=== PATIENT | female | born 1935 | race African-American/Black ===

== ENCOUNTER 2019-08-23 21:14 | Inpatient (IN) | payer BC ==
[~2019-08-23] VITALS: Ht 167.6 cm; Wt 72.6 kg
[2019-08-23 22:07] LABS: HEMATOCRIT. 43.8 % (36.0-48.0); MEAN CORPUSCULAR HEMOGLOBIN 31.2 pg (28.0-32.0); MEAN CORPUSCULAR VOLUME 91.2 fL (81.0-99.0); MEAN PLATELET VOLUME 8.5 fl (7.4-10.4); PLATELET 211 x1000/uL (130-400); RED BLOOD CELL COUNT 4.81 mill/uL (4.2-5.4); RED CELL DISTRIBUTION WIDTH 13.8 % (11.6-14.6)
[2019-08-23 22:13] LABS: CHLORIDE 104 mEq/L (98-107); INR 1.1; PROTHROMBIN TIME 12.4 sec (9.6-11.0)
[2019-08-23 22:16] LABS: ETHANOL BLOOD < 10 mg/dL
[2019-08-23 22:25] LABS: PLATELET ESTIMATE NORMAL
[2019-08-23] MEDS ORDERED: SODIUM CHLORIDE 0.9% 1,000 ML IV ONE (22:28)
[2019-08-23 22:51] LABS: CLARITY URINE CLEAR (CLEAR); COLOR URINE YELLOW (YELLOW); KETONES URINE NEGATIVE (NEGATIVE); LEUKOCYTE ESTERASE URINE TRACE (NEGATIVE); NITRITE URINE NEGATIVE (NEGATIVE); OCCULT BLOOD URINE 2+ (NEGATIVE); PROTEIN URINE 1+ (NEGATIVE); SPECIFIC GRAVITY URINE 1.019 (1.005-1.030)
[2019-08-23 23:06] LABS: *AMPHETAMINES SCREEN URINE NEGATIVE (NEGATIVE); *BARBITURATES SCREEN URINE NEGATIVE (NEGATIVE); *BENZODIAZEPINES SCREEN URINE NEGATIVE (NEGATIVE); *COCAINE SCREEN URINE NEGATIVE (NEGATIVE); METHADONE URINE SCREEN NEGATIVE (NEGATIVE); OPIATES URINE SCREEN NEGATIVE (NEGATIVE)
[2019-08-23 23:07] LABS: CANNABINOID URINE SCREEN NEGATIVE (NEGATIVE); PHENCYCLIDINE URINE SCREEN NEGATIVE (NEGATIVE)
[2019-08-23] MEDS ORDERED: PIPERACILLIN/TAZ 3.375G PREMIX 50 ML IV ONE (23:45)
[2019-08-23] MEDS ORDERED: VANCOMYCIN 1 G PREMIX 200 ML IV ONE (23:45)
[2019-08-24] VITALS (7 sets, daily range): BP systolic 133–146; BP diastolic 72–90
[2019-08-24] MEDS ORDERED: KCL 20MEQ/100ML PREMIX 100 ML IV ONE
[2019-08-24] MEDS ORDERED: IPRATROPIUM/ALBUTEROL 0.5-3(2.5)MG/3ML NEB HHN PRN (09:15)
[2019-08-24] MEDS ORDERED: ACETAMINOPHEN 325MG TABLET PO PRN (09:15)
[2019-08-24] MEDS ORDERED: DOCUSATE SODIUM 100MG CAPSULE PO PRN (09:15)
[2019-08-24] MEDS ORDERED: ONDANSETRON HCL 4MG/2ML INJ IV PRN (09:15)
[2019-08-24] MEDS ORDERED: CLONIDINE 0.1MG TABLET PO PRN (09:15)
[2019-08-24 10:49] LABS: HEMATOCRIT. 44.8 % (36.0-48.0); HEMOGLOBIN. 14.8 g/dL (12.0-16.0); MEAN CORPUSCULAR HEMOGLOBIN 30.6 pg (28.0-32.0); MEAN CORPUSCULAR VOLUME 92.7 fL (81.0-99.0); MEAN PLATELET VOLUME 8.5 fl (7.4-10.4); PLATELET 169 x1000/uL (130-400); RED BLOOD CELL COUNT 4.83 mill/uL (4.2-5.4); RED CELL DISTRIBUTION WIDTH 13.7 % (11.6-14.6)
[2019-08-24 10:59] LABS: CHLORIDE 109 mEq/L (98-107)
[2019-08-24 11:55] LABS: PLATELET ESTIMATE NORMAL
[2019-08-24] MEDS ORDERED: ATOR10TA69 MT (12:21)
[2019-08-24] MEDS ORDERED: APIX2.5T MT (12:21)
[2019-08-24] MEDS ORDERED: POTASSIUM CHLORIDE 20MEQ TABLET SR PO SCH (13:00)
[2019-08-24] MEDS ORDERED: APIXABAN 5 MG TABLET PO SCH (13:45)
[2019-08-24] MEDS ORDERED: PIPERACILLIN/TAZOBACTAM 3.375 G/VIAL IV SCH (14:00)
[2019-08-24] MEDS: PIPERACILLIN/TAZ 3.375G PREMIX 50 ML IV SCH (14:15)
[2019-08-24] MEDS ORDERED: LORAZEPAM 2MG/ML CPJ IV PRN (17:30)
[2019-08-24] MEDS ORDERED: IOHEXOL-300 100 ML BOTTLE ONE (17:57)
[2019-08-24] MEDS: VANCOMYCIN 750 MG PREMIX 150 ML IV SCH (21:14)
[2019-08-24] MEDS: ATORVASTATIN CALCIUM 10MG TABLET PO SCH (21:22)
[2019-08-24] MEDS ORDERED: VANCOMYCIN 1 G PREMIX 200 ML IV SCH (23:59)
[2019-08-25] VITALS (11 sets, daily range): BP systolic 116–161; BP diastolic 48–83
[2019-08-25] MEDS: PIPERACILLIN/TAZ 3.375G PREMIX 50 ML IV SCH ×3 (00:21→14:13)
[2019-08-25] MEDS: HYDROCODONE/ACETAMINOPHEN 5/325MG TABLET PO PRN ×2 (03:13→09:01)
[2019-08-25 08:56] LABS: BASOPHILS % 0.2 % (0.0-2.0); HEMATOCRIT. 47.8 % (36.0-48.0); LYMPHOCYTES % 10.8 % (20.0-50.0); MEAN CORPUSCULAR HEMOGLOBIN 30.8 pg (28.0-32.0); MEAN CORPUSCULAR VOLUME 91.9 fL (81.0-99.0); MEAN PLATELET VOLUME 8.8 fl (7.4-10.4); PLATELET 182 x1000/uL (130-400); RED CELL DISTRIBUTION WIDTH 14.1 % (11.6-14.6)
[2019-08-25] MEDS: APIXABAN 2.5 MG TABLET PO SCH ×2 (09:02→16:50)
[2019-08-25 09:08] LABS: CHLORIDE 103 mEq/L (98-107)
[2019-08-25] MEDS ORDERED: SODIUM CHLORIDE 0.9% 1000ML BAG (SEPSIS BOLUS) IV ONE ×2 (10:45)
[2019-08-25] MEDS ORDERED: SODIUM CHLORIDE 0.9% 1,000 ML IV ONE (11:30)
[2019-08-25] MEDS: VANCOMYCIN 750 MG PREMIX 150 ML IV SCH (16:50)
[2019-08-25] MEDS: ATORVASTATIN CALCIUM 10MG TABLET PO SCH (21:00)
[2019-08-25] MEDS: PIPERACILLIN/TAZOBACTAM 3.375 G in DEXT 5% WATER 100 ML IV SCH (21:05)
[2019-08-26] VITALS (9 sets, daily range): BP systolic 119–147; BP diastolic 65–108
[2019-08-26] MEDS: PIPERACILLIN/TAZOBACTAM 3.375 G in DEXT 5% WATER 100 ML IV SCH ×3 (06:14→22:10)
[2019-08-26 07:22] LABS: CHLORIDE 106 mEq/L (98-107)
[2019-08-26 07:36] LABS: BASOPHILS % 0.2 % (0.0-2.0); EOSINOPHILS % 0.4 % (0.0-5.0); HEMATOCRIT. 44.5 % (36.0-48.0); HEMOGLOBIN. 15.2 g/dL (12.0-16.0); LYMPHOCYTES % 18.4 % (20.0-50.0); MEAN CORPUSCULAR HEMOGLOBIN 31.1 pg (28.0-32.0); MEAN CORPUSCULAR VOLUME 91.1 fL (81.0-99.0); MEAN PLATELET VOLUME 9.2 fl (7.4-10.4); MONOCYTES % 8.7 % (2.0-8.0); NEUTROPHILS % 72.3 % (40.0-76.0); PLATELET 159 x1000/uL (130-400); RED BLOOD CELL COUNT 4.89 mill/uL (4.2-5.4); RED CELL DISTRIBUTION WIDTH 13.7 % (11.6-14.6)
[2019-08-26] MEDS ORDERED: SODIUM BICARBONATE 4% (2.4MEQ) 5ML VIAL IV ONE (08:03)
[2019-08-26] MEDS ORDERED: LIDOCAINE HCL 1% 20ML VIAL (Pyxis) INJ ONE (08:03)
[2019-08-26] MEDS: APIXABAN 2.5 MG TABLET PO SCH ×2 (09:26→17:01)
[2019-08-26] MEDS: VANCOMYCIN 750 MG PREMIX 150 ML IV SCH (09:26)
[2019-08-26] MEDS ORDERED: IOHEXOL-350 100 ML BOTTLE ONE (10:26)
[2019-08-26] MEDS ORDERED: SODIUM CHLORIDE 0.9% 1,000 ML IV ONE (11:30)
[2019-08-26] MEDS: DOXYCYCLINE 100 MG in DEXT 5% WATER 100 ML IV SCH (17:01)
[2019-08-26] MEDS: ATORVASTATIN CALCIUM 10MG TABLET PO SCH (21:11)
[2019-08-27] MEDS ORDERED: VANCOMYCIN 1 G PREMIX 200 ML IV SCH
[2019-08-27] MEDS: DOXYCYCLINE 100 MG in DEXT 5% WATER 100 ML IV SCH (00:09)
[2019-08-27 00:32] VITALS: BP 148/81
[2019-08-27] MEDS: IPRATROPIUM/ALBUTEROL 0.5-3(2.5)MG/3ML NEB HHN SCH (01:13)
[2019-08-27 04:00] VITALS: BP 138/66
[2019-08-27] MEDS: PIPERACILLIN/TAZOBACTAM 3.375 G in DEXT 5% WATER 100 ML IV SCH ×3 (05:46→22:00)
[2019-08-27 06:27] LABS: CHLORIDE 106 mEq/L (98-107)
[2019-08-27 06:33] LABS: PHOSPHORUS 2.7 mg/dL (2.5-4.9)
[2019-08-27 06:37] LABS: BASOPHILS % 0.2 % (0.0-2.0); EOSINOPHILS % 0.7 % (0.0-5.0); HEMATOCRIT. 41.5 % (36.0-48.0); HEMOGLOBIN. 14.3 g/dL (12.0-16.0); LYMPHOCYTES % 19.4 % (20.0-50.0); MEAN CORPUSCULAR HEMOGLOBIN 31.2 pg (28.0-32.0); MEAN CORPUSCULAR VOLUME 90.4 fL (81.0-99.0); MEAN PLATELET VOLUME 9.2 fl (7.4-10.4); MONOCYTES % 9.8 % (2.0-8.0); NEUTROPHILS % 69.9 % (40.0-76.0); PLATELET 176 x1000/uL (130-400); RED BLOOD CELL COUNT 4.59 mill/uL (4.2-5.4); RED CELL DISTRIBUTION WIDTH 13.5 % (11.6-14.6)
[2019-08-27 08:49] VITALS: BP 128/63
[2019-08-27] MEDS: APIXABAN 2.5 MG TABLET PO SCH ×2 (09:09→17:01)
[2019-08-27] MEDS: DOXYCYCLINE HYCLATE 100MG CAPSULE PO SCH ×2 (09:09→21:00)
[2019-08-27] MEDS ORDERED: POTASSIUM CHLORIDE 20MEQ TABLET SR PO SCH (11:30)
[2019-08-27 12:29] VITALS: BP 134/70
[2019-08-27 16:13] VITALS: BP 134/86
[2019-08-27] MEDS: GUAIFENESIN 600MG ER TABLET PO SCH (21:00)
[2019-08-27] MEDS: ATORVASTATIN CALCIUM 10MG TABLET PO SCH (21:00)
[2019-08-28] MEDS: IPRATROPIUM/ALBUTEROL 0.5-3(2.5)MG/3ML NEB HHN SCH (01:12)
[2019-08-28 05:49] LABS: BASOPHILS % 0.3 % (0.0-2.0); EOSINOPHILS % 2.3 % (0.0-5.0); HEMATOCRIT. 41.7 % (36.0-48.0); HEMOGLOBIN. 14.3 g/dL (12.0-16.0); MEAN CORPUSCULAR HEMOGLOBIN 31.4 pg (28.0-32.0); MEAN CORPUSCULAR VOLUME 91.4 fL (81.0-99.0); MEAN PLATELET VOLUME 9.4 fl (7.4-10.4); MONOCYTES % 10.2 % (2.0-8.0); NEUTROPHILS % 64.2 % (40.0-76.0); PLATELET 202 x1000/uL (130-400); RED BLOOD CELL COUNT 4.56 mill/uL (4.2-5.4); RED CELL DISTRIBUTION WIDTH 13.6 % (11.6-14.6)
[2019-08-28 06:02] LABS: CHLORIDE 107 mEq/L (98-107)
[2019-08-28] MEDS: PIPERACILLIN/TAZOBACTAM 3.375 G in DEXT 5% WATER 100 ML IV SCH ×3 (06:35→22:33)
[2019-08-28 08:00] VITALS: BP 139/66
[2019-08-28] MEDS: APIXABAN 2.5 MG TABLET PO SCH ×2 (11:09→16:40)
[2019-08-28] MEDS: DOXYCYCLINE HYCLATE 100MG CAPSULE PO SCH ×2 (11:09→22:20)
[2019-08-28] MEDS: GUAIFENESIN 600MG ER TABLET PO SCH ×2 (11:09→21:00)
[2019-08-28 12:00] VITALS: BP 150/94
[2019-08-28 16:00] VITALS: BP 143/91
[2019-08-28 20:00] VITALS: BP 125/56
[2019-08-28] MEDS: ATORVASTATIN CALCIUM 10MG TABLET PO SCH (22:20)
[2019-08-29] MEDS: IPRATROPIUM/ALBUTEROL 0.5-3(2.5)MG/3ML NEB HHN SCH ×3 (02:06→15:45)
[2019-08-29 04:35] VITALS: BP 142/76
[2019-08-29] MEDS: PIPERACILLIN/TAZOBACTAM 3.375 G in DEXT 5% WATER 100 ML IV SCH ×2 (06:00→15:11)
[2019-08-29 06:18] LABS: BASOPHILS % 0.2 % (0.0-2.0); EOSINOPHILS % 1.6 % (0.0-5.0); HEMATOCRIT. 42.7 % (36.0-48.0); HEMOGLOBIN. 14.2 g/dL (12.0-16.0); LYMPHOCYTES % 23.8 % (20.0-50.0); MEAN CORPUSCULAR HEMOGLOBIN 30.7 pg (28.0-32.0); MEAN PLATELET VOLUME 9.2 fl (7.4-10.4); MONOCYTES % 11.3 % (2.0-8.0); NEUTROPHILS % 63.1 % (40.0-76.0); PLATELET 225 x1000/uL (130-400); RED BLOOD CELL COUNT 4.64 mill/uL (4.2-5.4)
[2019-08-29 06:32] LABS: CHLORIDE 107 mEq/L (98-107)
[2019-08-29 08:00] VITALS: BP_SYST 117; BP_SYST 154; BP_DIAS 74; BP_DIAS 84
[2019-08-29] MEDS: APIXABAN 2.5 MG TABLET PO SCH ×2 (09:38→17:39)
[2019-08-29] MEDS: DOXYCYCLINE HYCLATE 100MG CAPSULE PO SCH (09:38)
[2019-08-29] MEDS: GUAIFENESIN 600MG ER TABLET PO SCH (09:38)
[2019-08-29] MEDS ORDERED: POTASSIUM CHLORIDE 20MEQ TABLET SR PO SCH (11:30)
[2019-08-29 12:00] VITALS: BP 154/74
[2019-08-29 15:57] VITALS: BP 154/74
[2019-08-29] MEDS: ATORVASTATIN CALCIUM 10MG TABLET PO SCH (21:00)
[2019-08-30] MEDS: DOXYCYCLINE HYCLATE 100MG CAPSULE PO SCH ×3 (00:13→21:20)
[2019-08-30] MEDS: GUAIFENESIN 600MG ER TABLET PO SCH ×3 (00:14→21:20)
[2019-08-30] MEDS: PIPERACILLIN/TAZOBACTAM 3.375 G in DEXT 5% WATER 100 ML IV SCH ×4 (00:23→17:01)
[2019-08-30 06:08] LABS: BASOPHILS % 0.3 % (0.0-2.0); EOSINOPHILS % 2.4 % (0.0-5.0); HEMATOCRIT. 41.5 % (36.0-48.0); HEMOGLOBIN. 14.3 g/dL (12.0-16.0); LYMPHOCYTES % 25.8 % (20.0-50.0); MEAN CORPUSCULAR HEMOGLOBIN 31.3 pg (28.0-32.0); MEAN CORPUSCULAR VOLUME 90.7 fL (81.0-99.0); MEAN PLATELET VOLUME 8.8 fl (7.4-10.4); MONOCYTES % 11.1 % (2.0-8.0); NEUTROPHILS % 60.4 % (40.0-76.0); PLATELET 239 x1000/uL (130-400); RED BLOOD CELL COUNT 4.57 mill/uL (4.2-5.4); RED CELL DISTRIBUTION WIDTH 13.7 % (11.6-14.6)
[2019-08-30 06:32] LABS: CHLORIDE 106 mEq/L (98-107)
[2019-08-30] MEDS: IPRATROPIUM/ALBUTEROL 0.5-3(2.5)MG/3ML NEB HHN SCH ×2 (07:41→13:14)
[2019-08-30 08:00] VITALS: BP 136/77
[2019-08-30] MEDS: APIXABAN 2.5 MG TABLET PO SCH ×2 (09:31→17:01)
[2019-08-30 12:00] VITALS: BP 110/52
[2019-08-30 16:00] VITALS: BP 124/78
[2019-08-30 20:00] VITALS: BP 131/86
[2019-08-30] MEDS: ATORVASTATIN CALCIUM 10MG TABLET PO SCH (21:20)
[2019-08-31] VITALS (7 sets, daily range): BP systolic 125–147; BP diastolic 55–83
[2019-08-31] MEDS: PIPERACILLIN/TAZOBACTAM 3.375 G in DEXT 5% WATER 100 ML IV SCH ×3 (02:19→18:38)
[2019-08-31] MEDS: IPRATROPIUM/ALBUTEROL 0.5-3(2.5)MG/3ML NEB HHN SCH ×2 (02:20→21:38)
[2019-08-31] MEDS: DOXYCYCLINE HYCLATE 100MG CAPSULE PO SCH ×2 (08:42→23:54)
[2019-08-31] MEDS: APIXABAN 2.5 MG TABLET PO SCH ×2 (08:43→18:38)
[2019-08-31] MEDS: GUAIFENESIN 600MG ER TABLET PO SCH ×2 (08:43→23:54)
[2019-08-31] MEDS: ATORVASTATIN CALCIUM 10MG TABLET PO SCH (23:54)
[2019-09-01] VITALS (7 sets, daily range): BP systolic 107–158; BP diastolic 60–85
[2019-09-01] MEDS: PIPERACILLIN/TAZOBACTAM 3.375 G in DEXT 5% WATER 100 ML IV SCH ×3 (02:05→17:20)
[2019-09-01] MEDS: APIXABAN 2.5 MG TABLET PO SCH ×2 (10:00→17:00)
[2019-09-01] MEDS: GUAIFENESIN 600MG ER TABLET PO SCH ×2 (10:01→21:49)
[2019-09-01] MEDS: ATORVASTATIN CALCIUM 10MG TABLET PO SCH (21:49)
== END 2019-09-01 23:35 | DRG 871 ==
LOC: ER 21:14 → 3WST 23:48 → EDBEDREQ 23:59 → EDBEDREQSVC 23:59 → EDBEDREQTM 23:59 → ENRESERV 08-24 08:56 → 7EST 08-26 11:11 → 6WST 08-27 10:13
PROVIDERS: ADMIT Internal Medicine; ATTEND Internal Medicine
PROC: 4A00X4Z Measurement of Central Nervous Electrical Activity, External Approach (ICD-10-PCS; 2019-08-25)
PROC: 02HV33Z Insertion of Infusion Device into Superior Vena Cava, Percutaneous Approach (ICD-10-PCS; principal; 2019-08-26)
PROC: B548ZZA Ultrasonography of Superior Vena Cava, Guidance (ICD-10-PCS; 2019-08-26)
PROC: B5181ZA Fluoroscopy of Superior Vena Cava using Low Osmolar Contrast, Guidance (ICD-10-PCS; 2019-08-26)
DX: A41.9 Sepsis, unspecified organism (principal); J18.9 Pneumonia, unspecified organism; G92 Toxic encephalopathy; E87.2 Acidosis; E44.1 Mild protein-calorie malnutrition; E87.6 Hypokalemia; E78.00 Pure hypercholesterolemia, unspecified; D72.810 Lymphocytopenia; R31.9 Hematuria, unspecified; I48.91 Unspecified atrial fibrillation; E78.5 Hyperlipidemia, unspecified; K57.90 Diverticulosis of intestine, part unspecified, without perforation or abscess without bleeding; K76.0 Fatty (change of) liver, not elsewhere classified; Z79.01 Long term (current) use of anticoagulants; Z90.710 Acquired absence of both cervix and uterus; I69.322 Dysarthria following cerebral infarction; Z87.81 Personal history of (healed) traumatic fracture; Z79.899 Other long term (current) drug therapy; Z68.25 Body mass index [BMI] 25.0-25.9, adult; Z20.828 Contact with and (suspected) exposure to other viral communicable diseases
CPT/HCPCS: 36415; 36573; 70551; 71045; 71275; 74177; 76937; 80048; 80053; 80061; 80202; 80305; 80320; 81003; 82140; 82607; 82746; 82962; 83036; 83605; 83735; 84100; 84145; 84443; 84484; 85025; 85379; 87635; 92610; 93005; 93970; 95816; 97162; 97166; 97530; 99291; C1725; J2060; J2543; J3370; J3480; J3490; J7030; J7060; Q9967; G0480

== ENCOUNTER 2019-09-01 23:41 | Inpatient (IN) | payer BC ==
[2019-08-31 23:41] VITALS: BP 142/60
[~2019-09-01] VITALS: Ht 167.6 cm; Wt 72.6 kg
[2019-09-01 23:41] VITALS: BP 142/60
[~2019-09-01 23:41] MED LIST: APIX2.5T MT; ATOR10TA69 MT
[2019-09-02] MEDS ORDERED: CLONIDINE 0.1MG TABLET PO PRN (01:00)
[2019-09-02] MEDS ORDERED: ONDANSETRON HCL 4MG/2ML INJ IV PRN (01:00)
[2019-09-02] MEDS ORDERED: IPRATROPIUM/ALBUTEROL 0.5-3(2.5)MG/3ML NEB HHN PRN (01:00)
[2019-09-02] MEDS ORDERED: ACETAMINOPHEN 325MG TABLET PO PRN ×2 (01:00→14:15)
[2019-09-02] MEDS ORDERED: PIPERACILLIN/TAZOBACTAM 3.375 G/VIAL IV SCH (02:00)
[2019-09-02] MEDS: PIPERACILLIN/TAZOBACTAM 3.375 G in DEXT 5% WATER 100 ML IV SCH ×3 (03:45→18:49)
[2019-09-02 08:19] VITALS: BP 131/57
[2019-09-02] MEDS: APIXABAN 2.5 MG TABLET PO SCH ×2 (09:12→17:00)
[2019-09-02] MEDS: GUAIFENESIN 600MG ER TABLET PO SCH ×2 (09:12→21:05)
[2019-09-02] MEDS: IPRATROPIUM/ALBUTEROL 0.5-3(2.5)MG/3ML NEB HHN SCH ×2 (16:49→23:50)
[2019-09-02 20:00] VITALS: BP 132/58
[2019-09-02] MEDS: ATORVASTATIN CALCIUM 10MG TABLET PO SCH (21:06)
[2019-09-03] MEDS: PIPERACILLIN/TAZOBACTAM 3.375 G in DEXT 5% WATER 100 ML IV SCH ×3 (01:03→17:15)
[2019-09-03 08:00] VITALS: BP 126/55
[2019-09-03] MEDS: GUAIFENESIN 600MG ER TABLET PO SCH ×2 (08:16→20:57)
[2019-09-03] MEDS: APIXABAN 2.5 MG TABLET PO SCH ×2 (08:16→17:15)
[2019-09-03] MEDS: IPRATROPIUM/ALBUTEROL 0.5-3(2.5)MG/3ML NEB HHN SCH ×3 (09:22→22:00)
[2019-09-03 20:00] VITALS: BP 131/63
[2019-09-03] MEDS: ATORVASTATIN CALCIUM 10MG TABLET PO SCH (20:57)
[2019-09-04 00:03] LABS: CLARITY URINE CLEAR (CLEAR); COLOR URINE YELLOW (YELLOW); KETONES URINE TRACE (NEGATIVE); LEUKOCYTE ESTERASE URINE TRACE (NEGATIVE); NITRITE URINE NEGATIVE (NEGATIVE); OCCULT BLOOD URINE NEGATIVE (NEGATIVE); PROTEIN URINE 1+ (NEGATIVE); SPECIFIC GRAVITY URINE 1.033 (1.005-1.030)
[2019-09-04] MEDS: PIPERACILLIN/TAZOBACTAM 3.375 G in DEXT 5% WATER 100 ML IV SCH ×3 (01:07→17:03)
[2019-09-04 08:00] VITALS: BP 121/54
[2019-09-04] MEDS: GUAIFENESIN 600MG ER TABLET PO SCH ×2 (09:29→20:16)
[2019-09-04] MEDS: APIXABAN 2.5 MG TABLET PO SCH ×2 (09:29→17:04)
[2019-09-04] MEDS: IPRATROPIUM/ALBUTEROL 0.5-3(2.5)MG/3ML NEB HHN SCH ×3 (10:05→17:20)
[2019-09-04 13:13] LABS: BASOPHILS % 0.4 % (0.0-2.0); EOSINOPHILS % 1.6 % (0.0-5.0); HEMOGLOBIN. 13.7 g/dL (12.0-16.0); LYMPHOCYTES % 28.3 % (20.0-50.0); MEAN CORPUSCULAR HEMOGLOBIN 30.8 pg (28.0-32.0); MEAN PLATELET VOLUME 9.1 fl (7.4-10.4); NEUTROPHILS % 59.7 % (40.0-76.0); PLATELET 267 x1000/uL (130-400); RED BLOOD CELL COUNT 4.46 mill/uL (4.2-5.4); RED CELL DISTRIBUTION WIDTH 14.1 % (11.6-14.6)
[2019-09-04] MEDS ORDERED: POTASSIUM CHLORIDE 20MEQ TABLET SR PO NR (17:00)
[2019-09-04 20:00] VITALS: BP 153/65
[2019-09-04] MEDS: ATORVASTATIN CALCIUM 10MG TABLET PO SCH (20:16)
[2019-09-05] MEDS: IPRATROPIUM/ALBUTEROL 0.5-3(2.5)MG/3ML NEB HHN SCH ×2 (02:24→22:37)
[2019-09-05 08:00] VITALS: BP 134/63
[2019-09-05] MEDS: GUAIFENESIN 600MG ER TABLET PO SCH ×2 (08:26→20:32)
[2019-09-05] MEDS: APIXABAN 2.5 MG TABLET PO SCH ×2 (08:26→16:43)
[2019-09-05 20:00] VITALS: BP 121/51
[2019-09-05] MEDS: ATORVASTATIN CALCIUM 10MG TABLET PO SCH (20:32)
[2019-09-06] MEDS: IPRATROPIUM/ALBUTEROL 0.5-3(2.5)MG/3ML NEB HHN SCH (00:10)
[2019-09-06 08:00] VITALS: BP 140/52
[2019-09-06] MEDS: APIXABAN 2.5 MG TABLET PO SCH ×2 (08:50→17:24)
[2019-09-06] MEDS: GUAIFENESIN 600MG ER TABLET PO SCH ×2 (08:50→21:44)
[2019-09-06] MEDS: SODIUM CHLORIDE 0.9% 1,000 ML IV SCH (14:42)
[2019-09-06 20:00] VITALS: BP 126/59
[2019-09-06] MEDS: ATORVASTATIN CALCIUM 10MG TABLET PO SCH (21:44)
[2019-09-07] MEDS: IPRATROPIUM/ALBUTEROL 0.5-3(2.5)MG/3ML NEB HHN SCH ×3 (02:14→16:43)
[2019-09-07] MEDS: SODIUM CHLORIDE 0.9% 1,000 ML IV SCH (04:42)
[2019-09-07 08:27] VITALS: BP 113/59
[2019-09-07] MEDS: APIXABAN 2.5 MG TABLET PO SCH ×2 (09:04→16:14)
[2019-09-07] MEDS: GUAIFENESIN 600MG ER TABLET PO SCH ×2 (09:04→22:10)
[2019-09-07 09:15] LABS: BASOPHILS % 0.5 % (0.0-2.0); EOSINOPHILS % 2.2 % (0.0-5.0); HEMATOCRIT. 40.1 % (36.0-48.0); HEMOGLOBIN. 13.3 g/dL (12.0-16.0); LYMPHOCYTES % 40.9 % (20.0-50.0); MEAN CORPUSCULAR HEMOGLOBIN 30.7 pg (28.0-32.0); MEAN CORPUSCULAR VOLUME 92.3 fL (81.0-99.0); MEAN PLATELET VOLUME 10.2 fl (7.4-10.4); MONOCYTES % 10.1 % (2.0-8.0); NEUTROPHILS % 46.3 % (40.0-76.0); PLATELET 208 x1000/uL (130-400); RED BLOOD CELL COUNT 4.35 mill/uL (4.2-5.4); RED CELL DISTRIBUTION WIDTH 14.5 % (11.6-14.6)
[2019-09-07 09:30] LABS: CHLORIDE 112 mEq/L (98-107)
[2019-09-07 20:00] VITALS: BP 145/73
[2019-09-07] MEDS: ATORVASTATIN CALCIUM 10MG TABLET PO SCH (22:10)
[2019-09-08] MEDS: IPRATROPIUM/ALBUTEROL 0.5-3(2.5)MG/3ML NEB HHN SCH ×2 (07:18→15:06)
[2019-09-08 08:22] VITALS: BP 136/65
[2019-09-08] MEDS: APIXABAN 2.5 MG TABLET PO SCH ×2 (08:53→16:26)
[2019-09-08] MEDS: GUAIFENESIN 600MG ER TABLET PO SCH ×2 (08:55→22:14)
[2019-09-08 20:18] VITALS: BP 123/45
[2019-09-08] MEDS: ATORVASTATIN CALCIUM 10MG TABLET PO SCH (22:15)
[2019-09-09 08:00] VITALS: BP 124/59
[2019-09-09 08:38] VITALS: BP 124/59
[2019-09-09] MEDS: GUAIFENESIN 600MG ER TABLET PO SCH ×2 (09:02→21:49)
[2019-09-09] MEDS: APIXABAN 2.5 MG TABLET PO SCH ×2 (09:02→17:29)
[2019-09-09] MEDS: ATORVASTATIN CALCIUM 10MG TABLET PO SCH (21:49)
[2019-09-09 22:11] VITALS: BP 118/63
[2019-09-10] MEDS: IPRATROPIUM/ALBUTEROL 0.5-3(2.5)MG/3ML NEB HHN SCH ×5 (00:53→20:19)
[2019-09-10 08:00] VITALS: BP 111/40
[2019-09-10] MEDS: APIXABAN 2.5 MG TABLET PO SCH ×2 (10:18→17:14)
[2019-09-10] MEDS: GUAIFENESIN 600MG ER TABLET PO SCH ×2 (10:18→20:25)
[2019-09-10 20:00] VITALS: BP 134/60
[2019-09-10] MEDS: ATORVASTATIN CALCIUM 10MG TABLET PO SCH (20:25)
[2019-09-11] MEDS: IPRATROPIUM/ALBUTEROL 0.5-3(2.5)MG/3ML NEB HHN SCH ×3 (01:18→17:26)
[2019-09-11 08:00] VITALS: BP 126/65
[2019-09-11] MEDS: DOCUSATE SODIUM 100MG CAPSULE PO PRN (08:30)
[2019-09-11] MEDS: APIXABAN 2.5 MG TABLET PO SCH ×2 (08:30→16:54)
[2019-09-11] MEDS: GUAIFENESIN 600MG ER TABLET PO SCH ×2 (08:30→21:13)
[2019-09-11] MEDS ORDERED: APIX2.5T MT (15:24)
[2019-09-11] MEDS ORDERED: ATOR10TA69 MT (15:24)
[2019-09-11 20:00] VITALS: BP 122/62
[2019-09-11] MEDS: ATORVASTATIN CALCIUM 10MG TABLET PO SCH (21:13)
[2019-09-12 08:21] VITALS: BP 121/58
[2019-09-12] MEDS: DOCUSATE SODIUM 100MG CAPSULE PO PRN (08:42)
[2019-09-12] MEDS: GUAIFENESIN 600MG ER TABLET PO SCH (08:42)
[2019-09-12] MEDS: APIXABAN 2.5 MG TABLET PO SCH (08:42)
[2019-09-12 10:18] VITALS: BP 18/121
== END 2019-09-12 14:30 | disposition home health service (06) | DRG 70 ==
PROVIDERS: ADMIT Psychiatry & Neurology Neurology; ATTEND Internal Medicine
DX: G93.41 Metabolic encephalopathy (principal); A41.9 Sepsis, unspecified organism; J18.9 Pneumonia, unspecified organism; I48.20 Chronic atrial fibrillation, unspecified; E87.2 Acidosis; E46 Unspecified protein-calorie malnutrition; D72.810 Lymphocytopenia; R15.9 Full incontinence of feces; R32 Unspecified urinary incontinence; E87.6 Hypokalemia; R31.9 Hematuria, unspecified; I10 Essential (primary) hypertension; E78.5 Hyperlipidemia, unspecified; R47.1 Dysarthria and anarthria; K57.90 Diverticulosis of intestine, part unspecified, without perforation or abscess without bleeding; K76.0 Fatty (change of) liver, not elsewhere classified; Z79.01 Long term (current) use of anticoagulants; Z79.899 Other long term (current) drug therapy; Z86.73 Personal history of transient ischemic attack (TIA), and cerebral infarction without residual deficits; Z90.710 Acquired absence of both cervix and uterus; I25.2 Old myocardial infarction; Z68.25 Body mass index [BMI] 25.0-25.9, adult
CPT/HCPCS: 36415; 71045; 80048; 81003; 85025; 92523; 94640; 97110; 97112; 97116; 97162; 97167; 97530; 97535; J2543; J7060

== ENCOUNTER 2021-08-09 14:20 | Inpatient (IN) | payer BC ==
[~2021-08-09] VITALS: Ht 167.6 cm; Wt 98.1 kg
[2021-08-09] MEDS ORDERED: VANCOMYCIN 1G PREMIX 200 ML IV ONE (14:45)
[2021-08-09] MEDS ORDERED: SODIUM CHLORIDE 0.9% 1000ML BAG (SEPSIS BOLUS) IV ONE (14:45)
[2021-08-09] MEDS ORDERED: PIPERACILLIN/TAZ 3.375G PREMIX 50 ML IV ONE (14:45)
[2021-08-09] MEDS ORDERED: NOREPINEPHRINE 8 MG in DEXT 5% WATER 242 ML IV STA (14:47)
[2021-08-09] MEDS ORDERED: FENTANYL 2500MCG/250ML PMX 250 ML IV STA ×2 (14:47→14:57)
[2021-08-09 14:54] LABS: BASOPHILS % 0.3 % (0.0-2.0); EOSINOPHILS % 0.2 % (0.0-5.0); HEMATOCRIT. 26.2 % (36.0-48.0); HEMOGLOBIN. 8.6 g/dL (12.0-16.0); MEAN CORPUSCULAR HEMOGLOBIN 30.8 pg (28.0-32.0); MEAN CORPUSCULAR VOLUME 93.8 fL (81.0-99.0); MEAN PLATELET VOLUME 8.4 fl (7.4-10.4); MONOCYTES % 5.3 % (2.0-8.0); NEUTROPHILS % 68.2 % (40.0-76.0); PLATELET 365 x1000/uL (130-400); RED BLOOD CELL COUNT 2.79 mill/uL (4.2-5.4); RED CELL DISTRIBUTION WIDTH 15.7 % (11.6-14.6)
[2021-08-09] MEDS ORDERED: NOREPINEPHRINE 8MG/250ML PMX 242 ML IV PRN (14:54)
[2021-08-09 14:57] LABS: CHLORIDE 101 mEq/L (98-107)
[2021-08-09] MEDS ORDERED: FENTANYL 2500MCG/250ML PMX 250 ML IV NR (15:00)
[2021-08-09] MEDS ORDERED: PIPERACILLIN/TAZ 3.375G PREMIX 50 ML IV NR (15:00)
[2021-08-09] MEDS ORDERED: VANCOMYCIN 1GM PMX (XELLIA) 200 ML IV NR (15:00)
[2021-08-09] MEDS ORDERED: MIDAZOLAM HCL 100 MG in DEXT 5% WATER 80 ML IV ONE ×4 (15:00)
[2021-08-09 15:05] LABS: INR 1.5; PARTIAL THROMBOPLASTIN TIME 34.3 sec (23.4-31.0); PROTHROMBIN TIME 15.2 sec (9.6-11.0)
[2021-08-09 15:35] LABS: BG BASE EXCESS -1.8 mmol/L (-2.0-2.0); BG CARBOXYHEMOGLOBIN 0.8 % (0.5-1.5); BG DEOXYHEMOGLOBIN 21.6 % (0.0-5.0); BG FRACTION INSPIRED OXYGEN 100; BG HCO3 ACT 23.1 mmol/L (22.0-26.0); BG METHEMOGLOBIN 0.3 % (0.0-1.5); BG OXYGEN SATURATION 78.2 % (92.0-98.5); BG OXYHEMOGLOBIN 77.3 % (94.0-97.0); BG PCO2 40.1 mmHg (35.0-45.0); BG PH 7.379 (7.350-7.450); BG PO2 46.9 mmHg (75.0-100.0); BG TOTAL HEMOGLOBIN 10.1 g/dL (12.0-18.0); BG VENT MODE VENT - AC
[2021-08-09 16:18] LABS: CLARITY URINE CLOUDY (CLEAR); COLOR URINE ORANGE (YELLOW); KETONES URINE NEGATIVE (NEGATIVE); LEUKOCYTE ESTERASE URINE 1+ (NEGATIVE); NITRITE URINE NEGATIVE (NEGATIVE); OCCULT BLOOD URINE 3+ (NEGATIVE); PROTEIN URINE 3+ (NEGATIVE); SPECIFIC GRAVITY URINE 1.016 (1.005-1.030)
[2021-08-09] MEDS ORDERED: MIDAZOLAM 100MG/100ML PMX 100 ML IV PRN (17:30)
[2021-08-09] MEDS ORDERED: IPRATROPIUM/ALBUTEROL 0.5-3(2.5)MG/3ML NEB HHN PRN (17:30)
[2021-08-09] MEDS ORDERED: FENTANYL CITRATE/PF 2,500 MCG in SODIUM CHLORIDE 0.9% 200 ML IV PRN (17:30)
[2021-08-09] MEDS ORDERED: NOREPINEPHRINE 32 MG in DEXT 5% WATER 218 ML IV PRN (17:30)
[2021-08-09 17:59] LABS: BG BASE EXCESS -4.7 mmol/L (-2.0-2.0); BG CARBOXYHEMOGLOBIN 0.1 % (0.5-1.5); BG DEOXYHEMOGLOBIN 9.5 % (0.0-5.0); BG FRACTION INSPIRED OXYGEN 100; BG HCO3 ACT 21.8 mmol/L (22.0-26.0); BG METHEMOGLOBIN 0.2 % (0.0-1.5); BG OXYGEN SATURATION 90.5 % (92.0-98.5); BG OXYHEMOGLOBIN 90.2 % (94.0-97.0); BG PCO2 46.2 mmHg (35.0-45.0); BG PH 7.291 (7.350-7.450); BG PO2 70.1 mmHg (75.0-100.0); BG TOTAL HEMOGLOBIN 9.9 g/dL (12.0-18.0); BG VENT MODE VENT - AC
[2021-08-09] MEDS ORDERED: HEPARIN 25,000 UNITS PREMIX 250 ML IV STA (18:32)
[2021-08-09] MEDS: IPRATROPIUM/ALBUTEROL 0.5-3(2.5)MG/3ML NEB HHN SCH (20:18)
[2021-08-09] MEDS: PIPERACILLIN/TAZOBACTAM 3.375 G in DEXTROSE 5% WATER 50 ML IV SCH (21:21)
[2021-08-09] MEDS: METHYLPREDNISOLONE SOD SUCC 40 MG/ML VIAL IV SCH (21:21)
[2021-08-09] MEDS ORDERED: HEPARIN BOLUS PRN aPTT 30-44 IV (21:30)
[2021-08-09] MEDS ORDERED: HEPARIN 25,000 UNITS in DEXT 5% WATER 245 ML IV SCH (21:30)
[2021-08-09] MEDS ORDERED: HEPARIN BOLUS PRN aPTT <30 IV (21:30)
[2021-08-09] MEDS ORDERED: HEPARIN 60 UNITS/KG BOLUS IV NR (21:30)
[2021-08-09] MEDS ORDERED: PIPERACILLIN/TAZOBACTAM 3.375 G in DEXTROSE 5% WATER 50 ML IV SCH (22:00)
[2021-08-09] MEDS ORDERED: ACETAMINOPHEN 325MG TABLET PO PRN (22:15)
[2021-08-09] MEDS ORDERED: ONDANSETRON HCL 4MG/2ML INJ IV PRN (22:15)
[2021-08-09] MEDS ORDERED: FUROSEMIDE 20MG/2ML VIAL IVP NR (22:30)
[2021-08-09 23:13] LABS: AMYLASE 41 IU/L (25-115)
[2021-08-09] MEDS: SODIUM CHLORIDE 0.9% 1,000 ML IV SCH (23:29)
[2021-08-09] MEDS: PANTOPRAZOLE SODIUM 40 MG/VIAL IV SCH (23:36)
[2021-08-10] VITALS (106 sets, daily range): BP systolic 42–165; BP diastolic 20–109
[2021-08-10] MEDS: NOREPINEPHRINE 32 MG in DEXT 5% WATER 218 ML IV PRN ×2 (00:22→15:08)
[2021-08-10] MEDS ORDERED: HEPARIN 25,000 UNITS PREMIX 250 ML IV SCH (00:30)
[2021-08-10] MEDS ORDERED: DEXTROSE 50% WATER 50ML SYRINGE IV PRN (00:30)
[2021-08-10] MEDS ORDERED: FENTANYL CITRATE/PF 2,500 MCG in SODIUM CHLORIDE 0.9% 200 ML IV PRN (01:30)
[2021-08-10] MEDS ORDERED: MIDAZOLAM 100MG/100ML PMX 100 ML IV PRN (01:30)
[2021-08-10 02:59] LABS: BG BASE EXCESS -11.2 mmol/L (-2.0-2.0); BG CARBOXYHEMOGLOBIN 0.5 % (0.5-1.5); BG FRACTION INSPIRED OXYGEN 100; BG HCO3 ACT 16.7 mmol/L (22.0-26.0); BG METHEMOGLOBIN 0.2 % (0.0-1.5); BG OXYHEMOGLOBIN 93.3 % (94.0-97.0); BG PCO2 44.2 mmHg (35.0-45.0); BG PH 7.194 (7.350-7.450); BG SAMPLE SITE RIGHT RADIAL; BG TOTAL HEMOGLOBIN 15.8 g/dL (12.0-18.0)
[2021-08-10] MEDS ORDERED: SODIUM BICARBONATE 8.4% 1 MEQ/ML 50ML SYR IV NR (03:30)
[2021-08-10] MEDS: FENTANYL 2500MCG/250ML PMX 250 ML IV PRN ×3 (03:44→21:44)
[2021-08-10] MEDS: IPRATROPIUM/ALBUTEROL 0.5-3(2.5)MG/3ML NEB HHN SCH ×5 (04:50→20:49)
[2021-08-10] MEDS: PIPERACILLIN/TAZOBACTAM 3.375 G in DEXTROSE 5% WATER 50 ML IV SCH ×3 (05:48→22:59)
[2021-08-10] MEDS: MIDAZOLAM HCL 100 MG in SODIUM CHLORIDE 0.9% 100 ML IV PRN ×2 (05:57→20:20)
[2021-08-10] MEDS ORDERED: BLOOD SUGAR DIAGNOSTIC STRIP TEST SCH (06:00)
[2021-08-10] MEDS ORDERED: VANCOMYCIN 1GM PMX (XELLIA) 200 ML IV SCH (06:00)
[2021-08-10 06:31] LABS: HEMATOCRIT. 27.3 % (36.0-48.0); HEMOGLOBIN. 8.9 g/dL (12.0-16.0); MEAN CORPUSCULAR HEMOGLOBIN 30.3 pg (28.0-32.0); MEAN CORPUSCULAR VOLUME 92.8 fL (81.0-99.0); MEAN PLATELET VOLUME 8.6 fl (7.4-10.4); PLATELET 358 x1000/uL (130-400); RED BLOOD CELL COUNT 2.94 mill/uL (4.2-5.4); RED CELL DISTRIBUTION WIDTH 15.6 % (11.6-14.6)
[2021-08-10 06:52] LABS: CREATINE KINASE MB FRACTION 2.2 ng/mL (0.5-3.6)
[2021-08-10 06:56] LABS: CHLORIDE 107 mEq/L (98-107)
[2021-08-10] MEDS ORDERED: INSULIN LISPRO 100 UNITS/ML SUBCUT SCH (07:00)
[2021-08-10 08:11] LABS: BG BASE EXCESS -6.1 mmol/L (-2.0-2.0); BG CARBOXYHEMOGLOBIN 0.6 % (0.5-1.5); BG DEOXYHEMOGLOBIN 3.5 % (0.0-5.0); BG HCO3 ACT 20.5 mmol/L (22.0-26.0); BG METHEMOGLOBIN 0.1 % (0.0-1.5); BG OXYGEN SATURATION 96.5 % (92.0-98.5); BG OXYHEMOGLOBIN 95.8 % (94.0-97.0); BG PCO2 45.3 mmHg (35.0-45.0); BG PH 7.274 (7.350-7.450); BG PO2 100.5 mmHg (75.0-100.0); BG SAMPLE SITE RIGHT RADIAL; BG TOTAL HEMOGLOBIN 10.6 g/dL (12.0-18.0); BG VENT MODE VENT- PRVC
[2021-08-10] MEDS: ASPIRIN 81MG TABLET PO SCH (09:38)
[2021-08-10] MEDS: PANTOPRAZOLE SODIUM 40 MG/VIAL IV SCH (09:38)
[2021-08-10] MEDS: METHYLPREDNISOLONE SOD SUCC 40 MG/ML VIAL IV SCH ×2 (09:38→20:18)
[2021-08-10 09:54] LABS: HCG SCREEN NEGATIVE
[2021-08-10] MEDS: DOPAMINE 800MG PREMIX (DOUBLE) 250 ML IV PRN (11:45)
[2021-08-10 11:47] LABS: PLATELET ESTIMATE NORMAL
[2021-08-10] MEDS: BLOOD SUGAR DIAGNOSTIC STRIP TEST SCH ×2 (12:00→18:00)
[2021-08-10] MEDS: INSULIN LISPRO 100 UNITS/ML SUBCUT SCH ×2 (12:00→18:48)
[2021-08-10] MEDS ORDERED: PHENYLEPHRINE 50 MG in DEXT 5% WATER 245 ML IV PRN (12:30)
[2021-08-10] MEDS: SODIUM CHLORIDE 0.9% 1,000 ML IV SCH (15:10)
[2021-08-10 15:56] LABS: CREATINE KINASE MB FRACTION 3.1 ng/mL (0.5-3.6)
[2021-08-10] MEDS: PHENYLEPHRINE 100 MG in DEXT 5% WATER 240 ML IV PRN (18:29)
[2021-08-10 19:04] LABS: INR 1.5; PROTHROMBIN TIME 15.5 sec (9.6-11.0)
[2021-08-10 20:19] LABS: BG CARBOXYHEMOGLOBIN 0.3 % (0.5-1.5); BG DEOXYHEMOGLOBIN 7.5 % (0.0-5.0); BG FRACTION INSPIRED OXYGEN 100; BG HCO3 ACT 18.9 mmol/L (22.0-26.0); BG METHEMOGLOBIN 0.2 % (0.0-1.5); BG OXYGEN SATURATION 92.5 % (92.0-98.5); BG PCO2 44.1 mmHg (35.0-45.0); BG PH 7.249 (7.350-7.450); BG PO2 74.9 mmHg (75.0-100.0); BG SAMPLE SITE RIGHT RADIAL; BG TOTAL HEMOGLOBIN 10.4 g/dL (12.0-18.0); BG VENT MODE PRVC
[2021-08-10] MEDS: ENOXAPARIN 80MG/0.8ML SYR SUBCUT SCH (20:19)
[2021-08-11] VITALS (92 sets, daily range): BP systolic 47–182; BP diastolic 26–136
[2021-08-11] MEDS: METHYLPREDNISOLONE SOD SUCC 125 MG/2 ML VIAL IV SCH ×4 (00:09→18:51)
[2021-08-11] MEDS: INSULIN LISPRO 100 UNITS/ML SUBCUT SCH ×4 (00:11→18:00)
[2021-08-11] MEDS: BLOOD SUGAR DIAGNOSTIC STRIP TEST SCH ×4 (00:11→18:00)
[2021-08-11] MEDS: IPRATROPIUM/ALBUTEROL 0.5-3(2.5)MG/3ML NEB HHN SCH ×5 (00:26→20:10)
[2021-08-11 02:10] LABS: HEMATOCRIT. 29.3 % (36.0-48.0); HEMOGLOBIN. 9.3 g/dL (12.0-16.0); MEAN CORPUSCULAR HEMOGLOBIN 29.7 pg (28.0-32.0); MEAN CORPUSCULAR VOLUME 93.1 fL (81.0-99.0); MEAN PLATELET VOLUME 8.5 fl (7.4-10.4); PLATELET 307 x1000/uL (130-400); RED BLOOD CELL COUNT 3.14 mill/uL (4.2-5.4); RED CELL DISTRIBUTION WIDTH 15.7 % (11.6-14.6)
[2021-08-11] MEDS: PHENYLEPHRINE 100 MG in DEXT 5% WATER 240 ML IV PRN ×4 (02:18→22:15)
[2021-08-11 02:19] LABS: INR 1.7; PROTHROMBIN TIME 17.9 sec (9.6-11.0)
[2021-08-11 02:21] LABS: CHLORIDE 107 mEq/L (98-107)
[2021-08-11 02:29] LABS: PHOSPHORUS 3.5 mg/dL (2.5-4.9)
[2021-08-11 02:40] LABS: PLATELET ESTIMATE NORMAL
[2021-08-11] MEDS ORDERED: POTASSIUM CHLORIDE IV NR (04:00)
[2021-08-11] MEDS ORDERED: DEXT 5% IV NR (04:00)
[2021-08-11] MEDS ORDERED: WATER IV NR (04:00)
[2021-08-11] MEDS ORDERED: MAGNESIUM SULFATE 1GM/2ML VIAL IM ONE (04:00)
[2021-08-11] MEDS: DOPAMINE 800MG PREMIX (DOUBLE) 250 ML IV PRN ×2 (04:09→19:15)
[2021-08-11] MEDS: SODIUM CHLORIDE 0.9% 1,000 ML IV SCH (04:09)
[2021-08-11] MEDS ORDERED: MAGNESIUM 2 G PREMIX 50 ML IV NR (04:15)
[2021-08-11] MEDS: PIPERACILLIN/TAZOBACTAM 3.375 G in DEXTROSE 5% WATER 50 ML IV SCH ×3 (05:31→22:15)
[2021-08-11] MEDS ORDERED: VANCOMYCIN 1GM PMX (XELLIA) 200 ML IV SCH (06:00)
[2021-08-11 06:22] LABS: HEMATOCRIT. 27.5 % (36.0-48.0); HEMOGLOBIN. 8.8 g/dL (12.0-16.0); MEAN CORPUSCULAR HEMOGLOBIN 30.2 pg (28.0-32.0); MEAN CORPUSCULAR VOLUME 93.8 fL (81.0-99.0); MEAN PLATELET VOLUME 8.6 fl (7.4-10.4); PLATELET 307 x1000/uL (130-400); RED BLOOD CELL COUNT 2.93 mill/uL (4.2-5.4); RED CELL DISTRIBUTION WIDTH 15.7 % (11.6-14.6)
[2021-08-11 06:35] LABS: PHOSPHORUS 4.3 mg/dL (2.5-4.9)
[2021-08-11 06:59] LABS: INR 1.5; PROTHROMBIN TIME 15.4 sec (9.6-11.0)
[2021-08-11 07:43] LABS: PLATELET ESTIMATE NORMAL
[2021-08-11] MEDS: ENOXAPARIN 80MG/0.8ML SYR SUBCUT SCH ×2 (08:24→21:41)
[2021-08-11] MEDS: ASPIRIN 81MG TABLET PO SCH (08:24)
[2021-08-11] MEDS: PANTOPRAZOLE SODIUM 40 MG/VIAL IV SCH (08:24)
[2021-08-11 08:39] LABS: BG BASE EXCESS -8.5 mmol/L (-2.0-2.0); BG CARBOXYHEMOGLOBIN 0.3 % (0.5-1.5); BG DEOXYHEMOGLOBIN 0.7 % (0.0-5.0); BG FRACTION INSPIRED OXYGEN 100; BG HCO3 ACT 19.4 mmol/L (22.0-26.0); BG METHEMOGLOBIN 0.3 % (0.0-1.5); BG OXYGEN SATURATION 99.3 % (92.0-98.5); BG OXYHEMOGLOBIN 98.7 % (94.0-97.0); BG PCO2 51.1 mmHg (35.0-45.0); BG PH 7.197 (7.350-7.450); BG PO2 245.4 mmHg (75.0-100.0); BG SAMPLE SITE RIGHT RADIAL; BG TOTAL HEMOGLOBIN 10.2 g/dL (12.0-18.0); BG VENT MODE PRVC
[2021-08-11] MEDS ORDERED: SODIUM BICARBONATE 8.4% 1 MEQ/ML 50ML SYR IV NR (09:00)
[2021-08-11] MEDS: FENTANYL 2500MCG/250ML PMX 250 ML IV PRN (10:01)
[2021-08-11 10:20] LABS: HEMATOCRIT. 27.9 % (36.0-48.0); HEMOGLOBIN. 8.7 g/dL (12.0-16.0); MEAN CORPUSCULAR HEMOGLOBIN 29.6 pg (28.0-32.0); MEAN CORPUSCULAR VOLUME 94.6 fL (81.0-99.0); MEAN PLATELET VOLUME 8.7 fl (7.4-10.4); PLATELET 296 x1000/uL (130-400); RED BLOOD CELL COUNT 2.95 mill/uL (4.2-5.4); RED CELL DISTRIBUTION WIDTH 15.7 % (11.6-14.6)
[2021-08-11 10:30] LABS: CHLORIDE 108 mEq/L (98-107); INR 1.7; PROTHROMBIN TIME 17.4 sec (9.6-11.0)
[2021-08-11] MEDS ORDERED: MAGNESIUM 2 G PREMIX 50 ML IV PRN (10:30)
[2021-08-11] MEDS ORDERED: KCL 20MEQ/100ML PREMIX 100 ML IV PRN (10:30)
[2021-08-11] MEDS ORDERED: CALCIUM GLUCONATE 2,000 MG in DEXT 5% WATER 80 ML IV PRN (10:30)
[2021-08-11 10:58] LABS: PLATELET ESTIMATE NORMAL
[2021-08-11 14:34] LABS: HEMATOCRIT. 26.7 % (36.0-48.0); HEMOGLOBIN. 8.6 g/dL (12.0-16.0); MEAN CORPUSCULAR HEMOGLOBIN 29.9 pg (28.0-32.0); MEAN CORPUSCULAR VOLUME 92.3 fL (81.0-99.0); MEAN PLATELET VOLUME 8.8 fl (7.4-10.4); PLATELET 328 x1000/uL (130-400); RED BLOOD CELL COUNT 2.89 mill/uL (4.2-5.4); RED CELL DISTRIBUTION WIDTH 15.7 % (11.6-14.6)
[2021-08-11 14:40] LABS: INR 1.6; PROTHROMBIN TIME 16.3 sec (9.6-11.0)
[2021-08-11 14:48] LABS: PHOSPHORUS 4.1 mg/dL (2.5-4.9)
[2021-08-11 16:10] LABS: PLATELET ESTIMATE NORMAL
[2021-08-11 18:43] LABS: HEMATOCRIT. 28.9 % (36.0-48.0); HEMOGLOBIN. 9.3 g/dL (12.0-16.0); MEAN CORPUSCULAR HEMOGLOBIN 29.7 pg (28.0-32.0); MEAN CORPUSCULAR VOLUME 92.4 fL (81.0-99.0); PLATELET 321 x1000/uL (130-400); RED BLOOD CELL COUNT 3.12 mill/uL (4.2-5.4); RED CELL DISTRIBUTION WIDTH 15.7 % (11.6-14.6)
[2021-08-11] MEDS: FUROSEMIDE 40MG/4ML VIAL IVP SCH ×2 (18:50→21:41)
[2021-08-11 18:53] LABS: INR 1.6; PROTHROMBIN TIME 16.3 sec (9.6-11.0)
[2021-08-11 19:07] LABS: PHOSPHORUS 4.1 mg/dL (2.5-4.9)
[2021-08-11 19:18] LABS: PLATELET ESTIMATE NORMAL
[2021-08-11 19:42] LABS: PARTIAL THROMBOPLASTIN TIME 46.4 sec (23.4-31.0)
[2021-08-11 20:36] LABS: BG BASE EXCESS -6.5 mmol/L (-2.0-2.0); BG CARBOXYHEMOGLOBIN 0.3 % (0.5-1.5); BG DEOXYHEMOGLOBIN 5.6 % (0.0-5.0); BG FRACTION INSPIRED OXYGEN 100; BG HCO3 ACT 18.6 mmol/L (22.0-26.0); BG METHEMOGLOBIN 0.3 % (0.0-1.5); BG OXYGEN SATURATION 94.4 % (92.0-98.5); BG OXYHEMOGLOBIN 93.8 % (94.0-97.0); BG PCO2 35.3 mmHg (35.0-45.0); BG PH 7.339 (7.350-7.450); BG PO2 77.8 mmHg (75.0-100.0); BG SAMPLE SITE RIGHT RADIAL; BG TOTAL HEMOGLOBIN 9.5 g/dL (12.0-18.0); BG VENT MODE VENT - APRV
[2021-08-12] VITALS (93 sets, daily range): BP systolic 61–154; BP diastolic 39–99
[2021-08-12] MEDS: IPRATROPIUM/ALBUTEROL 0.5-3(2.5)MG/3ML NEB HHN SCH ×6 (00:06→21:00)
[2021-08-12 00:42] LABS: HEMOGLOBIN. 8.7 g/dL (12.0-16.0); MEAN CORPUSCULAR HEMOGLOBIN 29.4 pg (28.0-32.0); MEAN CORPUSCULAR VOLUME 91.7 fL (81.0-99.0); MEAN PLATELET VOLUME 9.2 fl (7.4-10.4); PLATELET 314 x1000/uL (130-400); RED BLOOD CELL COUNT 2.94 mill/uL (4.2-5.4); RED CELL DISTRIBUTION WIDTH 15.6 % (11.6-14.6)
[2021-08-12 00:49] LABS: CHLORIDE 105 mEq/L (98-107)
[2021-08-12 00:56] LABS: PHOSPHORUS 4.3 mg/dL (2.5-4.9)
[2021-08-12 00:58] LABS: CREATINE KINASE 32 IU/L (26-192)
[2021-08-12] MEDS: METHYLPREDNISOLONE SOD SUCC 125 MG/2 ML VIAL IV SCH ×4 (01:16→18:06)
[2021-08-12 01:17] LABS: PLATELET ESTIMATE NORMAL
[2021-08-12] MEDS: PHENYLEPHRINE 100 MG in DEXT 5% WATER 240 ML IV PRN ×2 (05:28→12:46)
[2021-08-12] MEDS: INSULIN LISPRO 100 UNITS/ML SUBCUT SCH ×4 (05:46→18:00)
[2021-08-12] MEDS: BLOOD SUGAR DIAGNOSTIC STRIP TEST SCH ×4 (05:46→18:03)
[2021-08-12] MEDS: PIPERACILLIN/TAZOBACTAM 3.375 G in DEXTROSE 5% WATER 50 ML IV SCH ×2 (05:46→13:06)
[2021-08-12 06:51] LABS: HEMOGLOBIN. 8.1 g/dL (12.0-16.0); MEAN CORPUSCULAR HEMOGLOBIN 29.4 pg (28.0-32.0); MEAN PLATELET VOLUME 9.2 fl (7.4-10.4); PLATELET 318 x1000/uL (130-400); RED BLOOD CELL COUNT 2.74 mill/uL (4.2-5.4); RED CELL DISTRIBUTION WIDTH 15.5 % (11.6-14.6)
[2021-08-12 06:56] LABS: CHLORIDE 105 mEq/L (98-107)
[2021-08-12 07:02] LABS: PHOSPHORUS 4.2 mg/dL (2.5-4.9)
[2021-08-12 07:04] LABS: CREATINE KINASE 28 IU/L (26-192)
[2021-08-12] MEDS ORDERED: VANCOMYCIN 750MG PMX (XELLIA) 150 ML IV SCH (08:00)
[2021-08-12 08:45] LABS: BG BASE EXCESS -6.4 mmol/L (-2.0-2.0); BG CARBOXYHEMOGLOBIN 0.7 % (0.5-1.5); BG DEOXYHEMOGLOBIN 11.9 % (0.0-5.0); BG HCO3 ACT 18.9 mmol/L (22.0-26.0); BG METHEMOGLOBIN 0.3 % (0.0-1.5); BG OXYHEMOGLOBIN 87.1 % (94.0-97.0); BG PCO2 36.3 mmHg (35.0-45.0); BG PH 7.334 (7.350-7.450); BG PO2 57.3 mmHg (75.0-100.0); BG SAMPLE SITE RIGHT RADIAL; BG TOTAL HEMOGLOBIN 8.7 g/dL (12.0-18.0); BG VENT MODE VENT- PRVC
[2021-08-12] MEDS ORDERED: VANCOMYCIN 500MG PREMIX 100 ML IV SCH (09:00)
[2021-08-12] MEDS: PANTOPRAZOLE SODIUM 40 MG/VIAL IV SCH (09:04)
[2021-08-12] MEDS: ASPIRIN 81MG TABLET PO SCH (09:04)
[2021-08-12] MEDS: FUROSEMIDE 40MG/4ML VIAL IVP SCH (09:04)
[2021-08-12] MEDS: ENOXAPARIN 80MG/0.8ML SYR SUBCUT SCH ×2 (09:08→21:10)
[2021-08-12 11:00] LABS: PLATELET ESTIMATE NORMAL
[2021-08-12] MEDS ORDERED: SODIUM CHLORIDE 0.9% 250 ML IV ONE (12:00)
[2021-08-12 12:37] LABS: HEMATOCRIT. 24.8 % (36.0-48.0); MEAN CORPUSCULAR HEMOGLOBIN 29.3 pg (28.0-32.0); MEAN CORPUSCULAR VOLUME 90.8 fL (81.0-99.0); MEAN PLATELET VOLUME 9.2 fl (7.4-10.4); PLATELET 345 x1000/uL (130-400); RED BLOOD CELL COUNT 2.73 mill/uL (4.2-5.4); RED CELL DISTRIBUTION WIDTH 16.1 % (11.6-14.6)
[2021-08-12 12:41] LABS: CHLORIDE 105 mEq/L (98-107)
[2021-08-12 12:47] LABS: PHOSPHORUS 4.3 mg/dL (2.5-4.9)
[2021-08-12 12:49] LABS: CREATINE KINASE 29 IU/L (26-192)
[2021-08-12] MEDS: SODIUM CHLORIDE 0.9% 1,000 ML IV SCH ×2 (12:50→21:10)
[2021-08-12 13:42] LABS: NUCLEATED RED BLOOD CELLS 1 /100 WBC; PLATELET ESTIMATE NORMAL
[2021-08-12] MEDS: NOREPINEPHRINE 32 MG in DEXT 5% WATER 218 ML IV PRN (18:03)
[2021-08-12] MEDS: MEROPENEM 1,000 MG in SODIUM CHLORIDE 0.9% 100 ML IV SCH (18:06)
[2021-08-12 20:44] LABS: HEMATOCRIT. 25.9 % (36.0-48.0); HEMOGLOBIN. 8.1 g/dL (12.0-16.0); MEAN CORPUSCULAR HEMOGLOBIN 29.4 pg (28.0-32.0); MEAN CORPUSCULAR VOLUME 93.8 fL (81.0-99.0); MEAN PLATELET VOLUME 9.3 fl (7.4-10.4); PLATELET 353 x1000/uL (130-400); RED BLOOD CELL COUNT 2.75 mill/uL (4.2-5.4); RED CELL DISTRIBUTION WIDTH 16.1 % (11.6-14.6)
[2021-08-12 21:18] LABS: CHLORIDE 105 mEq/L (98-107)
[2021-08-12 21:26] LABS: PHOSPHORUS 4.6 mg/dL (2.5-4.9)
[2021-08-12 21:28] LABS: CREATINE KINASE 54 IU/L (26-192)
[2021-08-12 22:04] LABS: PLATELET ESTIMATE NORMAL
[2021-08-13] VITALS (96 sets, daily range): BP systolic 66–154; BP diastolic 19–99
[2021-08-13] MEDS: METHYLPREDNISOLONE SOD SUCC 125 MG/2 ML VIAL IV SCH ×5 (00:18→23:32)
[2021-08-13] MEDS: BLOOD SUGAR DIAGNOSTIC STRIP TEST SCH ×5 (00:18→23:32)
[2021-08-13] MEDS: IPRATROPIUM/ALBUTEROL 0.5-3(2.5)MG/3ML NEB HHN SCH ×6 (00:44→21:07)
[2021-08-13 01:11] LABS: HEMATOCRIT. 24.4 % (36.0-48.0); HEMOGLOBIN. 7.8 g/dL (12.0-16.0); MEAN CORPUSCULAR HEMOGLOBIN 29.3 pg (28.0-32.0); MEAN PLATELET VOLUME 9.3 fl (7.4-10.4); PLATELET 339 x1000/uL (130-400); RED BLOOD CELL COUNT 2.68 mill/uL (4.2-5.4); RED CELL DISTRIBUTION WIDTH 15.6 % (11.6-14.6)
[2021-08-13 01:23] LABS: CHLORIDE 106 mEq/L (98-107)
[2021-08-13 01:29] LABS: PHOSPHORUS 4.3 mg/dL (2.5-4.9)
[2021-08-13 01:32] LABS: CREATINE KINASE 31 IU/L (26-192)
[2021-08-13 02:10] LABS: PLATELET ESTIMATE NORMAL
[2021-08-13] MEDS: PHENYLEPHRINE 100 MG in DEXT 5% WATER 240 ML IV PRN ×4 (03:19→23:40)
[2021-08-13] MEDS: MEROPENEM 1,000 MG in SODIUM CHLORIDE 0.9% 100 ML IV SCH ×2 (05:57→17:04)
[2021-08-13] MEDS: INSULIN LISPRO 100 UNITS/ML SUBCUT SCH ×5 (05:57→23:32)
[2021-08-13] MEDS: SODIUM CHLORIDE 0.9% 1,000 ML IV SCH ×2 (05:57→17:16)
[2021-08-13 06:47] LABS: HEMOGLOBIN. 7.4 g/dL (12.0-16.0); MEAN CORPUSCULAR HEMOGLOBIN 29.3 pg (28.0-32.0); MEAN PLATELET VOLUME 9.5 fl (7.4-10.4); PLATELET 309 x1000/uL (130-400); RED BLOOD CELL COUNT 2.53 mill/uL (4.2-5.4); RED CELL DISTRIBUTION WIDTH 16.1 % (11.6-14.6)
[2021-08-13 06:49] LABS: CHLORIDE 107 mEq/L (98-107)
[2021-08-13 06:57] LABS: CREATINE KINASE 117 IU/L (26-192); PHOSPHORUS 4.4 mg/dL (2.5-4.9)
[2021-08-13 07:29] LABS: BG CARBOXYHEMOGLOBIN 0.2 % (0.5-1.5); BG DEOXYHEMOGLOBIN 6.8 % (0.0-5.0); BG HCO3 ACT 20.4 mmol/L (22.0-26.0); BG OXYGEN SATURATION 93.2 % (92.0-98.5); BG PCO2 45.2 mmHg (35.0-45.0); BG PH 7.273 (7.350-7.450); BG SAMPLE SITE RIGHT RADIAL; BG TOTAL HEMOGLOBIN 7.8 g/dL (12.0-18.0); BG VENT MODE VENT- PRVC
[2021-08-13 07:38] LABS: NUCLEATED RED BLOOD CELLS 2 /100 WBC; PLATELET ESTIMATE NORMAL
[2021-08-13] MEDS ORDERED: FUROSEMIDE 40MG/4ML VIAL IVP SCH (09:00)
[2021-08-13] MEDS: ASPIRIN 81MG TABLET PO SCH (09:00)
[2021-08-13] MEDS: PANTOPRAZOLE SODIUM 40 MG/VIAL IV SCH (09:16)
[2021-08-13] MEDS: FUROSEMIDE 40MG/4ML VIAL IVP SCH (09:17)
[2021-08-13] MEDS: ENOXAPARIN 80MG/0.8ML SYR SUBCUT SCH (09:17)
[2021-08-13] MEDS: MIDAZOLAM HCL 100 MG in SODIUM CHLORIDE 0.9% 100 ML IV PRN (09:18)
[2021-08-13 12:52] LABS: HEMATOCRIT. 23.8 % (36.0-48.0); HEMOGLOBIN. 7.6 g/dL (12.0-16.0); MEAN CORPUSCULAR HEMOGLOBIN 28.9 pg (28.0-32.0); MEAN CORPUSCULAR VOLUME 90.2 fL (81.0-99.0); MEAN PLATELET VOLUME 9.3 fl (7.4-10.4); PLATELET 378 x1000/uL (130-400); RED BLOOD CELL COUNT 2.64 mill/uL (4.2-5.4)
[2021-08-13 12:58] LABS: CHLORIDE 106 mEq/L (98-107)
[2021-08-13 13:07] LABS: PHOSPHORUS 4.6 mg/dL (2.5-4.9)
[2021-08-13 13:09] LABS: CREATINE KINASE 27 IU/L (26-192)
[2021-08-13 13:26] LABS: NUCLEATED RED BLOOD CELLS 1 /100 WBC; PLATELET ESTIMATE NORMAL
[2021-08-13] MEDS ORDERED: DEXT 5% IV PRN (15:56)
[2021-08-13] MEDS ORDERED: WATER IV PRN (15:56)
[2021-08-13] MEDS ORDERED: FENTANYL CITRATE IV PRN (15:56)
[2021-08-13] MEDS: FENTANYL CITRATE/PF 2,500 MCG in DEXT 5% WATER 200 ML IV PRN (16:46)
[2021-08-13] MEDS: DOPAMINE 800MG PREMIX (DOUBLE) 250 ML IV PRN (17:53)
[2021-08-14] VITALS (103 sets, daily range): BP systolic 58–134; BP diastolic 35–83
[2021-08-14] MEDS: IPRATROPIUM/ALBUTEROL 0.5-3(2.5)MG/3ML NEB HHN SCH ×5 (01:25→21:28)
[2021-08-14 04:55] LABS: MEAN CORPUSCULAR HEMOGLOBIN 29.8 pg (28.0-32.0); MEAN CORPUSCULAR VOLUME 91.6 fL (81.0-99.0); MEAN PLATELET VOLUME 9.2 fl (7.4-10.4); PLATELET 298 x1000/uL (130-400); RED BLOOD CELL COUNT 2.26 mill/uL (4.2-5.4); RED CELL DISTRIBUTION WIDTH 15.8 % (11.6-14.6)
[2021-08-14 04:58] LABS: INR 1.3
[2021-08-14 05:01] LABS: HEMATOCRIT. 20.7 % (36.0-48.0); HEMOGLOBIN. 6.8 g/dL (12.0-16.0)
[2021-08-14] MEDS: METHYLPREDNISOLONE SOD SUCC 125 MG/2 ML VIAL IV SCH ×3 (05:20→17:44)
[2021-08-14] MEDS: MEROPENEM 1,000 MG in SODIUM CHLORIDE 0.9% 100 ML IV SCH ×2 (05:20→17:44)
[2021-08-14] MEDS: SODIUM CHLORIDE 0.9% 1,000 ML IV SCH ×2 (05:21→23:07)
[2021-08-14] MEDS: INSULIN LISPRO 100 UNITS/ML SUBCUT SCH ×4 (05:27→23:55)
[2021-08-14] MEDS: BLOOD SUGAR DIAGNOSTIC STRIP TEST SCH ×4 (05:27→23:54)
[2021-08-14] MEDS: MIDAZOLAM HCL 100 MG in SODIUM CHLORIDE 0.9% 100 ML IV PRN (05:41)
[2021-08-14 06:18] LABS: CHLORIDE 109 mEq/L (98-107)
[2021-08-14 08:55] LABS: BG BASE EXCESS -3.7 mmol/L (-2.0-2.0); BG DEOXYHEMOGLOBIN 0.5 % (0.0-5.0); BG FRACTION INSPIRED OXYGEN 100; BG HCO3 ACT 21.7 mmol/L (22.0-26.0); BG METHEMOGLOBIN 0.5 % (0.0-1.5); BG OXYGEN SATURATION 99.5 % (92.0-98.5); BG PCO2 40.5 mmHg (35.0-45.0); BG PH 7.346 (7.350-7.450); BG SAMPLE SITE RIGHT RADIAL; BG TOTAL HEMOGLOBIN 7.3 g/dL (12.0-18.0); BG VENT MODE PRVC
[2021-08-14] MEDS ORDERED: ENOXAPARIN 100MG/ML SYR SUBCUT SCH (09:00)
[2021-08-14] MEDS: FUROSEMIDE 40MG/4ML VIAL IVP SCH (09:29)
[2021-08-14 10:37] LABS: PLATELET ESTIMATE NORMAL
[2021-08-14] MEDS: PANTOPRAZOLE SODIUM 40 MG/VIAL IV SCH (10:51)
[2021-08-14] MEDS: ASPIRIN 81MG TABLET PO SCH (11:34)
[2021-08-14] MEDS: PHENYLEPHRINE 100 MG in DEXT 5% WATER 240 ML IV PRN (18:20)
[2021-08-14] MEDS: FENTANYL CITRATE/PF 2,500 MCG in DEXT 5% WATER 200 ML IV PRN (21:04)
[2021-08-14 23:40] LABS: HEMATOCRIT 31.3 % (36.0-48.0); HEMOGLOBIN 10.4 g/dL (12.0-16.0)
[2021-08-15] VITALS (92 sets, daily range): BP systolic 64–138; BP diastolic 36–105
[2021-08-15] MEDS: METHYLPREDNISOLONE SOD SUCC 125 MG/2 ML VIAL IV SCH ×3 (00:04→13:32)
[2021-08-15] MEDS: IPRATROPIUM/ALBUTEROL 0.5-3(2.5)MG/3ML NEB HHN SCH ×6 (00:54→21:28)
[2021-08-15] MEDS: AZITHROMYCIN 500 MG in DEXT 5% WATER 250 ML IV SCH (01:02)
[2021-08-15] MEDS: INSULIN LISPRO 100 UNITS/ML SUBCUT SCH ×3 (05:27→17:56)
[2021-08-15] MEDS: BLOOD SUGAR DIAGNOSTIC STRIP TEST SCH ×3 (05:27→17:55)
[2021-08-15] MEDS: MEROPENEM 1,000 MG in SODIUM CHLORIDE 0.9% 100 ML IV SCH ×2 (05:36→17:58)
[2021-08-15 06:12] LABS: HEMATOCRIT. 31.4 % (36.0-48.0); HEMOGLOBIN. 10.5 g/dL (12.0-16.0); MEAN CORPUSCULAR VOLUME 89.8 fL (81.0-99.0); MEAN PLATELET VOLUME 9.4 fl (7.4-10.4); PLATELET 312 x1000/uL (130-400); RED CELL DISTRIBUTION WIDTH 15.2 % (11.6-14.6)
[2021-08-15 06:28] LABS: INR 1.3; PROTHROMBIN TIME 13.3 sec (9.6-11.0)
[2021-08-15] MEDS ORDERED: RACEPINEPHRINE 2.25% 0.5ML NEB VIAL HHN PRN (07:45)
[2021-08-15] MEDS ORDERED: RACEPINEPHRINE 2.25% 0.5ML NEB VIAL HHN SCH (07:45)
[2021-08-15 08:01] LABS: BG BASE EXCESS -8.2 mmol/L (-2.0-2.0); BG CARBOXYHEMOGLOBIN 0.3 % (0.5-1.5); BG DEOXYHEMOGLOBIN 18.2 % (0.0-5.0); BG HCO3 ACT 18.7 mmol/L (22.0-26.0); BG METHEMOGLOBIN 0.1 % (0.0-1.5); BG OXYGEN SATURATION 81.7 % (92.0-98.5); BG OXYHEMOGLOBIN 81.4 % (94.0-97.0); BG PCO2 43.8 mmHg (35.0-45.0); BG PH 7.248 (7.350-7.450); BG PO2 53.5 mmHg (75.0-100.0); BG SAMPLE SITE RIGHT RADIAL; BG TOTAL HEMOGLOBIN 10.7 g/dL (12.0-18.0); BG VENT MODE VEN5T- PRVC
[2021-08-15] MEDS ORDERED: SODIUM BICARBONATE 8.4% 1 MEQ/ML 50ML SYR IV NR (08:30)
[2021-08-15] MEDS: PANTOPRAZOLE SODIUM 40 MG/VIAL IV SCH (08:42)
[2021-08-15] MEDS: FUROSEMIDE 40MG/4ML VIAL IVP SCH (08:42)
[2021-08-15] MEDS: SODIUM CHLORIDE 0.9% 1,000 ML IV SCH ×2 (08:43→11:35)
[2021-08-15] MEDS ORDERED: VANCOMYCIN 750MG PMX (XELLIA) 150 ML IV NR (09:00)
[2021-08-15] MEDS ORDERED: POTASSIUM CHLORIDE 20MEQ/PACKET PO NR (10:00)
[2021-08-15] MEDS: LACTULOSE 20G/30ML UDC PO PRN (10:35)
[2021-08-15 13:27] LABS: NUCLEATED RED BLOOD CELLS 4 /100 WBC
[2021-08-15 13:28] LABS: PLATELET ESTIMATE NORMAL
[2021-08-15 16:02] LABS: BG BASE EXCESS -4.8 mmol/L (-2.0-2.0); BG CARBOXYHEMOGLOBIN 0.3 % (0.5-1.5); BG DEOXYHEMOGLOBIN 11.5 % (0.0-5.0); BG FRACTION INSPIRED OXYGEN 60; BG HCO3 ACT 19.2 mmol/L (22.0-26.0); BG METHEMOGLOBIN 0.2 % (0.0-1.5); BG OXYGEN SATURATION 88.4 % (92.0-98.5); BG PCO2 31.7 mmHg (35.0-45.0); BG PH 7.399 (7.350-7.450); BG PO2 58.2 mmHg (75.0-100.0); BG SAMPLE SITE LEFT RADIAL; BG TOTAL HEMOGLOBIN 11.5 g/dL (12.0-18.0); BG VENT MODE PRVC
[2021-08-15 16:45] LABS: HEMOGLOBIN. 10.3 g/dL (12.0-16.0); MEAN CORPUSCULAR HEMOGLOBIN 29.9 pg (28.0-32.0); MEAN CORPUSCULAR VOLUME 90.4 fL (81.0-99.0); MEAN PLATELET VOLUME 9.5 fl (7.4-10.4); PLATELET 306 x1000/uL (130-400); RED BLOOD CELL COUNT 3.43 mill/uL (4.2-5.4); RED CELL DISTRIBUTION WIDTH 15.5 % (11.6-14.6)
[2021-08-15 17:23] LABS: PLATELET ESTIMATE NORMAL
[2021-08-15] MEDS: METHYLPREDNISOLONE SOD SUCC 40 MG/ML VIAL IV SCH (17:58)
[2021-08-15] MEDS ORDERED: AZITHROMYCIN 500 MG in DEXT 5% WATER 250 ML IV SCH (22:15)
[2021-08-16] VITALS (61 sets, daily range): BP systolic 91–174; BP diastolic 39–117
[2021-08-16] MEDS: AZITHROMYCIN 500 MG in DEXT 5% WATER 250 ML IV SCH (00:12)
[2021-08-16] MEDS: METHYLPREDNISOLONE SOD SUCC 40 MG/ML VIAL IV SCH ×3 (00:12→15:24)
[2021-08-16] MEDS: IPRATROPIUM/ALBUTEROL 0.5-3(2.5)MG/3ML NEB HHN SCH ×6 (00:34→21:50)
[2021-08-16] MEDS: LACTULOSE 20G/30ML UDC PO PRN ×3 (02:54→15:26)
[2021-08-16 05:52] LABS: HEMATOCRIT. 26.9 % (36.0-48.0); HEMOGLOBIN. 9.1 g/dL (12.0-16.0); MEAN CORPUSCULAR HEMOGLOBIN 30.1 pg (28.0-32.0); MEAN CORPUSCULAR VOLUME 88.9 fL (81.0-99.0); MEAN PLATELET VOLUME 9.6 fl (7.4-10.4); PLATELET 265 x1000/uL (130-400); RED BLOOD CELL COUNT 3.03 mill/uL (4.2-5.4); RED CELL DISTRIBUTION WIDTH 15.3 % (11.6-14.6)
[2021-08-16] MEDS: BLOOD SUGAR DIAGNOSTIC STRIP TEST SCH ×3 (06:00→12:00)
[2021-08-16] MEDS: INSULIN LISPRO 100 UNITS/ML SUBCUT SCH ×3 (06:00→12:00)
[2021-08-16] MEDS: MEROPENEM 1,000 MG in SODIUM CHLORIDE 0.9% 100 ML IV SCH ×3 (06:17→17:00)
[2021-08-16] MEDS: SODIUM CHLORIDE 0.9% 1,000 ML IV SCH ×2 (06:21→14:15)
[2021-08-16] MEDS: FUROSEMIDE 40MG/4ML VIAL IVP SCH (09:15)
[2021-08-16] MEDS: PANTOPRAZOLE SODIUM 40 MG/VIAL IV SCH (09:15)
[2021-08-16 09:20] LABS: BG CARBOXYHEMOGLOBIN 0.6 % (0.5-1.5); BG DEOXYHEMOGLOBIN 8.6 % (0.0-5.0); BG FRACTION INSPIRED OXYGEN 60; BG HCO3 ACT 20.6 mmol/L (22.0-26.0); BG METHEMOGLOBIN 0.4 % (0.0-1.5); BG OXYGEN SATURATION 91.3 % (92.0-98.5); BG OXYHEMOGLOBIN 90.4 % (94.0-97.0); BG PCO2 31.4 mmHg (35.0-45.0); BG PH 7.434 (7.350-7.450); BG PO2 64.7 mmHg (75.0-100.0); BG SAMPLE SITE RIGHT RADIAL; BG TOTAL HEMOGLOBIN 10.4 g/dL (12.0-18.0); BG VENT MODE PRVC
[2021-08-16 10:02] LABS: NUCLEATED RED BLOOD CELLS 5 /100 WBC
[2021-08-16 10:03] LABS: PLATELET ESTIMATE NORMAL
[2021-08-16 15:29] LABS: HEMATOCRIT. 30.2 % (36.0-48.0); HEMOGLOBIN. 10.2 g/dL (12.0-16.0); MEAN CORPUSCULAR HEMOGLOBIN 30.4 pg (28.0-32.0); MEAN CORPUSCULAR VOLUME 89.7 fL (81.0-99.0); MEAN PLATELET VOLUME 9.7 fl (7.4-10.4); PLATELET 297 x1000/uL (130-400); RED BLOOD CELL COUNT 3.37 mill/uL (4.2-5.4); RED CELL DISTRIBUTION WIDTH 15.3 % (11.6-14.6)
[2021-08-16] MEDS ORDERED: DILTIAZEM HCL 125 MG in DEXT 5% WATER 100 ML IV PRN (18:00)
[2021-08-16] MEDS ORDERED: POTASSIUM CHLORIDE 20MEQ/PACKET GT NR (18:00)
[2021-08-16 18:16] LABS: NUCLEATED RED BLOOD CELLS 1 /100 WBC
[2021-08-16 18:17] LABS: PLATELET ESTIMATE NORMAL
[2021-08-16] MEDS: METOCLOPRAMIDE HCL 10MG/2ML VIAL IV SCH (18:33)
[2021-08-16] MEDS: FENTANYL 2500MCG/250ML PMX 250 ML IV PRN (20:03)
[2021-08-17] VITALS (82 sets, daily range): BP systolic 95–149; BP diastolic 41–91
[2021-08-17] MEDS: METHYLPREDNISOLONE SOD SUCC 40 MG/ML VIAL IV SCH ×4 (00:18→23:29)
[2021-08-17] MEDS: AZITHROMYCIN 500 MG in DEXT 5% WATER 250 ML IV SCH (00:19)
[2021-08-17] MEDS: IPRATROPIUM/ALBUTEROL 0.5-3(2.5)MG/3ML NEB HHN SCH ×6 (01:29→20:40)
[2021-08-17] MEDS: METOCLOPRAMIDE HCL 10MG/2ML VIAL IV SCH ×3 (02:56→16:52)
[2021-08-17] MEDS: MEROPENEM 1,000 MG in SODIUM CHLORIDE 0.9% 100 ML IV SCH ×2 (04:22→16:38)
[2021-08-17] MEDS: DILTIAZEM 125MG/125ML PMX 100 ML IV PRN ×2 (04:24→23:30)
[2021-08-17 04:51] LABS: HEMATOCRIT. 28.9 % (36.0-48.0); HEMOGLOBIN. 9.5 g/dL (12.0-16.0); MEAN CORPUSCULAR HEMOGLOBIN 29.5 pg (28.0-32.0); MEAN CORPUSCULAR VOLUME 89.8 fL (81.0-99.0); MEAN PLATELET VOLUME 9.4 fl (7.4-10.4); PLATELET 249 x1000/uL (130-400); RED BLOOD CELL COUNT 3.22 mill/uL (4.2-5.4); RED CELL DISTRIBUTION WIDTH 15.7 % (11.6-14.6)
[2021-08-17] MEDS: SODIUM CHLORIDE 0.9% 1,000 ML IV SCH ×2 (06:15→12:36)
[2021-08-17 07:32] LABS: PLATELET ESTIMATE NORMAL
[2021-08-17 09:06] LABS: BG BASE EXCESS -3.3 mmol/L (-2.0-2.0); BG CARBOXYHEMOGLOBIN 0.5 % (0.5-1.5); BG DEOXYHEMOGLOBIN 7.8 % (0.0-5.0); BG FRACTION INSPIRED OXYGEN 100; BG HCO3 ACT 21.4 mmol/L (22.0-26.0); BG METHEMOGLOBIN 0.3 % (0.0-1.5); BG OXYGEN SATURATION 92.1 % (92.0-98.5); BG OXYHEMOGLOBIN 91.4 % (94.0-97.0); BG PCO2 37.4 mmHg (35.0-45.0); BG PH 7.376 (7.350-7.450); BG PO2 69.5 mmHg (75.0-100.0); BG SAMPLE SITE RIGHT RADIAL; BG TOTAL HEMOGLOBIN 10.3 g/dL (12.0-18.0); BG VENT MODE VENT -PRVC
[2021-08-17] MEDS: PANTOPRAZOLE SODIUM 40 MG/VIAL IV SCH (09:34)
[2021-08-17] MEDS: VANCOMYCIN 500 MG in DEXT 5% WATER 100 ML IV SCH (09:35)
[2021-08-17] MEDS: FUROSEMIDE 40MG/4ML VIAL IVP SCH (09:35)
[2021-08-17] MEDS: LACTULOSE 20G/30ML UDC PO PRN (16:52)
[2021-08-18] VITALS (81 sets, daily range): BP systolic 90–171; BP diastolic 43–95
[2021-08-18] MEDS: FENTANYL 2500MCG/250ML PMX 250 ML IV PRN (00:34)
[2021-08-18] MEDS: AZITHROMYCIN 500 MG in DEXT 5% WATER 250 ML IV SCH (00:35)
[2021-08-18] MEDS: IPRATROPIUM/ALBUTEROL 0.5-3(2.5)MG/3ML NEB HHN SCH ×6 (00:36→20:39)
[2021-08-18] MEDS: METOCLOPRAMIDE HCL 10MG/2ML VIAL IV SCH ×3 (01:00→16:03)
[2021-08-18] MEDS: MEROPENEM 1,000 MG in SODIUM CHLORIDE 0.9% 100 ML IV SCH ×2 (04:38→15:55)
[2021-08-18 05:30] LABS: HEMATOCRIT. 28.7 % (36.0-48.0); HEMOGLOBIN. 9.3 g/dL (12.0-16.0); MEAN CORPUSCULAR HEMOGLOBIN 30.1 pg (28.0-32.0); MEAN CORPUSCULAR VOLUME 92.9 fL (81.0-99.0); MEAN PLATELET VOLUME 9.5 fl (7.4-10.4); PLATELET 192 x1000/uL (130-400); RED BLOOD CELL COUNT 3.09 mill/uL (4.2-5.4); RED CELL DISTRIBUTION WIDTH 16.6 % (11.6-14.6)
[2021-08-18] MEDS: SODIUM CHLORIDE 0.9% 1,000 ML IV SCH ×2 (05:35→09:51)
[2021-08-18 07:47] LABS: BG BASE EXCESS -1.2 mmol/L (-2.0-2.0); BG CARBOXYHEMOGLOBIN 0.7 % (0.5-1.5); BG DEOXYHEMOGLOBIN 8.7 % (0.0-5.0); BG HCO3 ACT 24.3 mmol/L (22.0-26.0); BG METHEMOGLOBIN 0.4 % (0.0-1.5); BG OXYGEN SATURATION 91.2 % (92.0-98.5); BG OXYHEMOGLOBIN 90.2 % (94.0-97.0); BG PCO2 43.9 mmHg (35.0-45.0); BG PH 7.361 (7.350-7.450); BG SAMPLE SITE RIGHT RADIAL; BG TOTAL HEMOGLOBIN 10.8 g/dL (12.0-18.0); BG VENT MODE VENT- PRVC
[2021-08-18] MEDS: DEXTROSE 5% WATER 1,000 ML IV SCH (08:30)
[2021-08-18] MEDS: PANTOPRAZOLE SODIUM 40 MG/VIAL IV SCH (09:23)
[2021-08-18] MEDS: METHYLPREDNISOLONE SOD SUCC 40 MG/ML VIAL IV SCH ×2 (09:24→15:56)
[2021-08-18] MEDS: FUROSEMIDE 40MG/4ML VIAL IVP SCH (09:24)
[2021-08-18 12:56] LABS: HEPATITIS B SURFACE ANTIGEN NEGATIVE
[2021-08-18 14:12] LABS: PLATELET ESTIMATE NORMAL
[2021-08-19] VITALS (71 sets, daily range): BP systolic 83–186; BP diastolic 31–148
[2021-08-19] MEDS: AZITHROMYCIN 500 MG in DEXT 5% WATER 250 ML IV SCH (00:20)
[2021-08-19] MEDS: METHYLPREDNISOLONE SOD SUCC 40 MG/ML VIAL IV SCH ×3 (00:20→16:09)
[2021-08-19] MEDS: DEXTROSE 5% WATER 1,000 ML IV SCH ×2 (00:21→14:23)
[2021-08-19] MEDS: IPRATROPIUM/ALBUTEROL 0.5-3(2.5)MG/3ML NEB HHN SCH ×4 (00:21→20:57)
[2021-08-19] MEDS: MEROPENEM 1,000 MG in SODIUM CHLORIDE 0.9% 100 ML IV SCH ×3 (04:38→16:21)
[2021-08-19 05:05] LABS: HEMATOCRIT. 27.5 % (36.0-48.0); HEMOGLOBIN. 8.9 g/dL (12.0-16.0); MEAN CORPUSCULAR HEMOGLOBIN 30.5 pg (28.0-32.0); MEAN CORPUSCULAR VOLUME 94.4 fL (81.0-99.0); MEAN PLATELET VOLUME 9.7 fl (7.4-10.4); PLATELET 150 x1000/uL (130-400); RED BLOOD CELL COUNT 2.91 mill/uL (4.2-5.4); RED CELL DISTRIBUTION WIDTH 16.7 % (11.6-14.6)
[2021-08-19] MEDS: VANCOMYCIN 500 MG in DEXT 5% WATER 100 ML IV SCH (09:02)
[2021-08-19] MEDS: FUROSEMIDE 40MG/4ML VIAL IVP SCH (09:02)
[2021-08-19] MEDS: PANTOPRAZOLE SODIUM 40 MG/VIAL IV SCH (09:02)
[2021-08-19 10:14] LABS: BG BASE EXCESS -5.8 mmol/L (-2.0-2.0); BG CARBOXYHEMOGLOBIN 0.2 % (0.5-1.5); BG DEOXYHEMOGLOBIN 9.6 % (0.0-5.0); BG FRACTION INSPIRED OXYGEN 100; BG HCO3 ACT 20.5 mmol/L (22.0-26.0); BG METHEMOGLOBIN 0.3 % (0.0-1.5); BG OXYGEN SATURATION 90.4 % (92.0-98.5); BG OXYHEMOGLOBIN 89.9 % (94.0-97.0); BG PCO2 43.9 mmHg (35.0-45.0); BG PH 7.288 (7.350-7.450); BG PO2 64.1 mmHg (75.0-100.0); BG SAMPLE SITE RIGHT RADIAL; BG TOTAL HEMOGLOBIN 9.5 g/dL (12.0-18.0); BG VENT MODE VENT - PRVC
[2021-08-19 12:56] LABS: PLATELET ESTIMATE NORMAL
[2021-08-19] MEDS: FENTANYL 2500MCG/250ML PMX 250 ML IV PRN (14:23)
[2021-08-20] VITALS (56 sets, daily range): BP systolic 114–162; BP diastolic 49–98
[2021-08-20] MEDS: IPRATROPIUM/ALBUTEROL 0.5-3(2.5)MG/3ML NEB HHN SCH ×6 (00:32→20:35)
[2021-08-20] MEDS: METHYLPREDNISOLONE SOD SUCC 40 MG/ML VIAL IV SCH ×3 (00:54→16:25)
[2021-08-20 04:16] LABS: HEMATOCRIT. 25.5 % (36.0-48.0); MEAN CORPUSCULAR HEMOGLOBIN 29.6 pg (28.0-32.0); MEAN CORPUSCULAR VOLUME 94.8 fL (81.0-99.0); MEAN PLATELET VOLUME 10.4 fl (7.4-10.4); PLATELET 114 x1000/uL (130-400); RED BLOOD CELL COUNT 2.69 mill/uL (4.2-5.4); RED CELL DISTRIBUTION WIDTH 16.7 % (11.6-14.6)
[2021-08-20 04:33] LABS: PHOSPHORUS 4.5 mg/dL (2.5-4.9)
[2021-08-20] MEDS: MEROPENEM 1,000 MG in SODIUM CHLORIDE 0.9% 100 ML IV SCH ×2 (05:31→17:18)
[2021-08-20] MEDS: DEXTROSE 5% WATER 1,000 ML IV SCH (08:11)
[2021-08-20] MEDS: FUROSEMIDE 40MG/4ML VIAL IVP SCH (09:02)
[2021-08-20] MEDS: PANTOPRAZOLE SODIUM 40 MG/VIAL IV SCH (09:02)
[2021-08-20] MEDS: FENTANYL 2500MCG/250ML PMX 250 ML IV PRN (09:40)
[2021-08-20 09:57] LABS: NUCLEATED RED BLOOD CELLS 1 /100 WBC
[2021-08-20] MEDS ORDERED: POTASSIUM CHLORIDE 20MEQ/PACKET PO SCH (10:00)
[2021-08-20 10:09] LABS: PLATELET ESTIMATE SLIGHTLY DECREASED
[2021-08-21] VITALS (75 sets, daily range): BP systolic 106–173; BP diastolic 47–87
[2021-08-21] MEDS: FENTANYL 2500MCG/250ML PMX 250 ML IV PRN ×2 (00:24→13:12)
[2021-08-21] MEDS: IPRATROPIUM/ALBUTEROL 0.5-3(2.5)MG/3ML NEB HHN SCH ×6 (00:27→20:08)
[2021-08-21] MEDS: METHYLPREDNISOLONE SOD SUCC 40 MG/ML VIAL IV SCH ×3 (00:30→18:54)
[2021-08-21 05:56] LABS: HEMATOCRIT. 24.2 % (36.0-48.0); HEMOGLOBIN. 7.6 g/dL (12.0-16.0); MEAN CORPUSCULAR HEMOGLOBIN 29.5 pg (28.0-32.0); MEAN CORPUSCULAR VOLUME 94.1 fL (81.0-99.0); PLATELET 97 x1000/uL (130-400); RED BLOOD CELL COUNT 2.57 mill/uL (4.2-5.4)
[2021-08-21] MEDS: MEROPENEM 1,000 MG in SODIUM CHLORIDE 0.9% 100 ML IV SCH ×2 (06:14→19:04)
[2021-08-21 06:40] LABS: PHOSPHORUS 4.5 mg/dL (2.5-4.9)
[2021-08-21 07:07] LABS: ANTI-NUCLEAR ANTIBODIES DIRECT Negative (Negative)
[2021-08-21] MEDS: PANTOPRAZOLE SODIUM 40 MG/VIAL IV SCH (07:55)
[2021-08-21] MEDS: FUROSEMIDE 40MG/4ML VIAL IVP SCH ×2 (09:08→18:54)
[2021-08-21 09:46] LABS: PLATELET ESTIMATE SLIGHTLY DECREASED
[2021-08-21] MEDS ORDERED: VANCOMYCIN 500 MG in DEXT 5% WATER 100 ML IV SCH (14:00)
[2021-08-21] MEDS: DILTIAZEM HCL 30MG TABLET PEG SCH ×2 (14:36→21:37)
[2021-08-21] MEDS: MORPHINE SULFATE 2 MG/ML CPJ (NOT FOR IM USE) IV PRN (20:02)
[2021-08-22] VITALS (79 sets, daily range): BP systolic 95–181; BP diastolic 44–132
[2021-08-22] MEDS: IPRATROPIUM/ALBUTEROL 0.5-3(2.5)MG/3ML NEB HHN SCH ×6 (00:02→20:39)
[2021-08-22] MEDS: METHYLPREDNISOLONE SOD SUCC 40 MG/ML VIAL IV SCH ×3 (00:54→17:24)
[2021-08-22] MEDS: MORPHINE SULFATE 2 MG/ML CPJ (NOT FOR IM USE) IV PRN ×3 (02:48→12:36)
[2021-08-22] MEDS: DILTIAZEM HCL 30MG TABLET PEG SCH (05:32)
[2021-08-22] MEDS: MEROPENEM 1,000 MG in SODIUM CHLORIDE 0.9% 100 ML IV SCH ×2 (05:32→17:25)
[2021-08-22 06:26] LABS: HEMATOCRIT. 27.3 % (36.0-48.0); HEMOGLOBIN. 8.7 g/dL (12.0-16.0); MEAN CORPUSCULAR HEMOGLOBIN 29.9 pg (28.0-32.0); MEAN CORPUSCULAR VOLUME 93.7 fL (81.0-99.0); MEAN PLATELET VOLUME 10.6 fl (7.4-10.4); PLATELET 123 x1000/uL (130-400); RED BLOOD CELL COUNT 2.92 mill/uL (4.2-5.4)
[2021-08-22 07:52] LABS: BG BASE EXCESS -3.6 mmol/L (-2.0-2.0); BG CARBOXYHEMOGLOBIN 0.1 % (0.5-1.5); BG HCO3 ACT 20.8 mmol/L (22.0-26.0); BG METHEMOGLOBIN 0.3 % (0.0-1.5); BG OXYHEMOGLOBIN 92.6 % (94.0-97.0); BG PCO2 34.8 mmHg (35.0-45.0); BG PH 7.394 (7.350-7.450); BG PO2 71.9 mmHg (75.0-100.0); BG SAMPLE SITE RIGHT RADIAL; BG TOTAL HEMOGLOBIN 9.8 g/dL (12.0-18.0); BG VENT MODE VENT- PRVC
[2021-08-22 08:26] LABS: PLATELET ESTIMATE SLIGHTLY DECREASED
[2021-08-22] MEDS: PANTOPRAZOLE SODIUM 40 MG/VIAL IV SCH (08:30)
[2021-08-22] MEDS: FUROSEMIDE 40MG/4ML VIAL IVP SCH ×2 (08:36→17:25)
[2021-08-22] MEDS ORDERED: HYDRALAZINE 20MG/ML VIAL IV PRN (10:15)
[2021-08-22] MEDS: LORAZEPAM 2MG/ML CPJ IV PRN ×2 (10:50→19:21)
[2021-08-22] MEDS: DILTIAZEM 125MG/125ML PMX 100 ML IV PRN (10:59)
[2021-08-22] MEDS ORDERED: FENTANYL IV PRN (12:15)
[2021-08-22] MEDS ORDERED: FENTANYL CITRATE/PF 1,000 MCG in SODIUM CHLORIDE 0.9% 80 ML IV PRN (12:15)
[2021-08-22] MEDS: FENTANYL 2500MCG/250ML PMX 250 ML IV PRN (13:06)
[2021-08-22] MEDS: DILTIAZEM HCL 60MG TABLET PEG SCH ×2 (14:18→22:00)
[2021-08-22] MEDS ORDERED: DILTIAZEM HCL 125 MG in DEXTROSE 5% WATER 125 ML IV PRN (16:30)
[2021-08-23] VITALS (92 sets, daily range): BP systolic 92–148; BP diastolic 33–80
[2021-08-23] MEDS: METHYLPREDNISOLONE SOD SUCC 40 MG/ML VIAL IV SCH ×3 (01:50→16:07)
[2021-08-23] MEDS: IPRATROPIUM/ALBUTEROL 0.5-3(2.5)MG/3ML NEB HHN SCH ×6 (04:51→20:37)
[2021-08-23 05:24] LABS: HEMATOCRIT. 24.1 % (36.0-48.0); HEMOGLOBIN. 7.9 g/dL (12.0-16.0); MEAN CORPUSCULAR HEMOGLOBIN 30.4 pg (28.0-32.0); MEAN PLATELET VOLUME 10.8 fl (7.4-10.4); PLATELET 105 x1000/uL (130-400); RED BLOOD CELL COUNT 2.59 mill/uL (4.2-5.4); RED CELL DISTRIBUTION WIDTH 16.9 % (11.6-14.6)
[2021-08-23] MEDS: DILTIAZEM HCL 60MG TABLET PEG SCH ×3 (06:00→22:00)
[2021-08-23] MEDS: MEROPENEM 1,000 MG in SODIUM CHLORIDE 0.9% 100 ML IV SCH (06:48)
[2021-08-23 07:12] LABS: PLATELET ESTIMATE SLIGHTLY DECREASED
[2021-08-23 09:09] LABS: BG BASE EXCESS -3.1 mmol/L (-2.0-2.0); BG CARBOXYHEMOGLOBIN 0.8 % (0.5-1.5); BG DEOXYHEMOGLOBIN 5.1 % (0.0-5.0); BG FRACTION INSPIRED OXYGEN 100; BG HCO3 ACT 22.5 mmol/L (22.0-26.0); BG METHEMOGLOBIN 0.5 % (0.0-1.5); BG OXYGEN SATURATION 94.8 % (92.0-98.5); BG OXYHEMOGLOBIN 93.6 % (94.0-97.0); BG PCO2 42.6 mmHg (35.0-45.0); BG PH 7.341 (7.350-7.450); BG PO2 85.3 mmHg (75.0-100.0); BG SAMPLE SITE RIGHT RADIAL; BG TOTAL HEMOGLOBIN 8.9 g/dL (12.0-18.0); BG VENT MODE VENT - PRVC
[2021-08-23] MEDS: PANTOPRAZOLE SODIUM 40 MG/VIAL IV SCH (09:43)
[2021-08-23] MEDS: FUROSEMIDE 40MG/4ML VIAL IVP SCH (09:43)
[2021-08-23] MEDS: FENTANYL 2500MCG/250ML PMX 250 ML IV PRN (14:21)
[2021-08-23 18:22] LABS: CLARITY URINE CLOUDY (CLEAR); COLOR URINE YELLOW (YELLOW); KETONES URINE NEGATIVE (NEGATIVE); LEUKOCYTE ESTERASE URINE 1+ (NEGATIVE); NITRITE URINE NEGATIVE (NEGATIVE); OCCULT BLOOD URINE 3+ (NEGATIVE); PROTEIN URINE 1+ (NEGATIVE); SPECIFIC GRAVITY URINE 1.011 (1.005-1.030); UROBILINOGEN URINE 0.2 E.U./dL (0.2-1.0)
[2021-08-23] MEDS: MEROPENEM 500MG in NORMAL SALINE 50ML IV SCH (19:02)
[2021-08-24] VITALS (60 sets, daily range): BP systolic 96–153; BP diastolic 43–89
[2021-08-24] MEDS: METHYLPREDNISOLONE SOD SUCC 40 MG/ML VIAL IV SCH ×3 (00:18→16:47)
[2021-08-24] MEDS: IPRATROPIUM/ALBUTEROL 0.5-3(2.5)MG/3ML NEB HHN SCH ×6 (00:43→23:52)
[2021-08-24 05:26] LABS: HEMATOCRIT. 24.1 % (36.0-48.0); HEMOGLOBIN. 7.9 g/dL (12.0-16.0); MEAN CORPUSCULAR HEMOGLOBIN 30.4 pg (28.0-32.0); MEAN CORPUSCULAR VOLUME 93.1 fL (81.0-99.0); MEAN PLATELET VOLUME 10.9 fl (7.4-10.4); PLATELET 107 x1000/uL (130-400); RED BLOOD CELL COUNT 2.59 mill/uL (4.2-5.4); RED CELL DISTRIBUTION WIDTH 16.8 % (11.6-14.6)
[2021-08-24] MEDS: DILTIAZEM HCL 60MG TABLET PEG SCH ×3 (06:00→21:29)
[2021-08-24] MEDS: MEROPENEM 500MG in NORMAL SALINE 50ML IV SCH ×2 (06:10→17:42)
[2021-08-24 07:24] LABS: PLATELET ESTIMATE DECREASED
[2021-08-24 08:02] LABS: BG BASE EXCESS -3.5 mmol/L (-2.0-2.0); BG CARBOXYHEMOGLOBIN 0.8 % (0.5-1.5); BG DEOXYHEMOGLOBIN 2.8 % (0.0-5.0); BG HCO3 ACT 21.7 mmol/L (22.0-26.0); BG METHEMOGLOBIN 0.5 % (0.0-1.5); BG OXYGEN SATURATION 97.2 % (92.0-98.5); BG OXYHEMOGLOBIN 95.9 % (94.0-97.0); BG PH 7.353 (7.350-7.450); BG PO2 103.3 mmHg (75.0-100.0); BG SAMPLE SITE RIGHT RADIAL; BG TOTAL HEMOGLOBIN 8.9 g/dL (12.0-18.0); BG VENT MODE VENT- PRVC
[2021-08-24] MEDS ORDERED: NALOXONE HCL 0.4MG/ML VIAL IV PRN (08:15)
[2021-08-24] MEDS: LORAZEPAM 2MG/ML CPJ IV PRN ×2 (08:30→21:29)
[2021-08-24] MEDS: PANTOPRAZOLE SODIUM 40 MG/VIAL IV SCH (09:16)
[2021-08-24] MEDS: FUROSEMIDE 40MG/4ML VIAL IVP SCH (09:16)
[2021-08-24] MEDS: MORPHINE SULFATE 2 MG/ML CPJ (NOT FOR IM USE) IV PRN (21:46)
[2021-08-25] VITALS (98 sets, daily range): BP systolic 85–145; BP diastolic 37–89
[2021-08-25] MEDS: METHYLPREDNISOLONE SOD SUCC 40 MG/ML VIAL IV SCH ×2 (00:23→08:05)
[2021-08-25] MEDS: LORAZEPAM 2MG/ML CPJ IV PRN ×2 (03:53→17:58)
[2021-08-25] MEDS: MORPHINE SULFATE 2 MG/ML CPJ (NOT FOR IM USE) IV PRN ×2 (03:53→21:10)
[2021-08-25] MEDS: IPRATROPIUM/ALBUTEROL 0.5-3(2.5)MG/3ML NEB HHN SCH ×5 (04:06→20:11)
[2021-08-25 05:39] LABS: HEMATOCRIT. 24.1 % (36.0-48.0); MEAN CORPUSCULAR HEMOGLOBIN 30.7 pg (28.0-32.0); MEAN CORPUSCULAR VOLUME 92.9 fL (81.0-99.0); MEAN PLATELET VOLUME 11.4 fl (7.4-10.4); PLATELET 111 x1000/uL (130-400); RED BLOOD CELL COUNT 2.59 mill/uL (4.2-5.4); RED CELL DISTRIBUTION WIDTH 16.8 % (11.6-14.6)
[2021-08-25] MEDS: DILTIAZEM HCL 60MG TABLET PEG SCH ×3 (06:23→21:19)
[2021-08-25] MEDS: MEROPENEM 500MG in NORMAL SALINE 50ML IV SCH ×2 (06:23→17:18)
[2021-08-25] MEDS ORDERED: ALBUMIN HUMAN 25GM/100ML (25%) IV NR (07:45)
[2021-08-25] MEDS: PANTOPRAZOLE SODIUM 40 MG/VIAL IV SCH (08:05)
[2021-08-25] MEDS: FUROSEMIDE 40MG/4ML VIAL IVP SCH (08:05)
[2021-08-25 09:32] LABS: BG BASE EXCESS -0.9 mmol/L (-2.0-2.0); BG CARBOXYHEMOGLOBIN 0.2 % (0.5-1.5); BG DEOXYHEMOGLOBIN 1.2 % (0.0-5.0); BG FRACTION INSPIRED OXYGEN 100; BG HCO3 ACT 23.5 mmol/L (22.0-26.0); BG METHEMOGLOBIN 0.3 % (0.0-1.5); BG OXYGEN SATURATION 98.8 % (92.0-98.5); BG OXYHEMOGLOBIN 98.3 % (94.0-97.0); BG PCO2 37.4 mmHg (35.0-45.0); BG PH 7.416 (7.350-7.450); BG PO2 146.9 mmHg (75.0-100.0); BG SAMPLE SITE RIGHT BRACHIAL; BG TOTAL HEMOGLOBIN 7.2 g/dL (12.0-18.0); BG VENT MODE PRVC
[2021-08-25 11:28] LABS: PLATELET ESTIMATE SLIGHTLY DECREASED
[2021-08-25] MEDS ORDERED: MIDODRINE HCL 5MG TABLET NG NR (12:14)
[2021-08-25] MEDS ORDERED: DILTIAZEM HCL 5MG/ML 5ML VIAL IV NR (12:30)
[2021-08-25] MEDS ORDERED: ACETAMINOPHEN 650MG/20.3ML UDC PO PRN (14:00)
[2021-08-25] MEDS: MIDODRINE HCL 5MG TABLET NG SCH ×2 (17:18→21:19)
[2021-08-25] MEDS: FLUCONAZOLE 200 MG/100ML BAG 100 ML IV SCH (20:59)
[2021-08-26] VITALS (85 sets, daily range): BP systolic 99–150; BP diastolic 34–106
[2021-08-26] MEDS: IPRATROPIUM/ALBUTEROL 0.5-3(2.5)MG/3ML NEB HHN SCH ×6 (00:07→20:53)
[2021-08-26] MEDS: MORPHINE SULFATE 2 MG/ML CPJ (NOT FOR IM USE) IV PRN (01:58)
[2021-08-26 04:28] LABS: HEMATOCRIT. 22.7 % (36.0-48.0); HEMOGLOBIN. 7.5 g/dL (12.0-16.0); MEAN CORPUSCULAR HEMOGLOBIN 30.3 pg (28.0-32.0); MEAN PLATELET VOLUME 10.8 fl (7.4-10.4); PLATELET 118 x1000/uL (130-400); RED BLOOD CELL COUNT 2.47 mill/uL (4.2-5.4)
[2021-08-26] MEDS: MEROPENEM 500MG in NORMAL SALINE 50ML IV SCH ×2 (05:33→17:52)
[2021-08-26] MEDS: DILTIAZEM HCL 60MG TABLET PEG SCH ×3 (05:33→21:34)
[2021-08-26 05:34] LABS: PLATELET ESTIMATE DECREASED
[2021-08-26] MEDS: MIDODRINE HCL 5MG TABLET NG SCH ×3 (05:34→21:44)
[2021-08-26] MEDS: PANTOPRAZOLE SODIUM 40 MG/VIAL IV SCH (09:39)
[2021-08-26] MEDS: FUROSEMIDE 40MG/4ML VIAL IVP SCH (09:39)
[2021-08-26] MEDS: DEXTROSE 5% WATER 1,000 ML IV SCH (12:00)
[2021-08-26 12:20] LABS: BG BASE EXCESS -1.7 mmol/L (-2.0-2.0); BG CARBOXYHEMOGLOBIN 0.5 % (0.5-1.5); BG DEOXYHEMOGLOBIN 13.4 % (0.0-5.0); BG HCO3 ACT 22.2 mmol/L (22.0-26.0); BG METHEMOGLOBIN 0.3 % (0.0-1.5); BG OXYGEN SATURATION 86.5 % (92.0-98.5); BG OXYHEMOGLOBIN 85.8 % (94.0-97.0); BG PCO2 34.6 mmHg (35.0-45.0); BG PH 7.426 (7.350-7.450); BG PO2 55.1 mmHg (75.0-100.0); BG SAMPLE SITE RIGHT RADIAL; BG TOTAL HEMOGLOBIN 9.5 g/dL (12.0-18.0); BG VENT MODE VENT- PRVC
[2021-08-26] MEDS: FLUCONAZOLE 200 MG/100ML BAG 100 ML IV SCH (20:44)
[2021-08-27] VITALS (98 sets, daily range): BP systolic 89–159; BP diastolic 38–78
[2021-08-27] MEDS: IPRATROPIUM/ALBUTEROL 0.5-3(2.5)MG/3ML NEB HHN SCH ×6 (00:39→20:27)
[2021-08-27] MEDS: DILTIAZEM HCL 60MG TABLET PEG SCH ×3 (06:41→22:29)
[2021-08-27] MEDS: DEXTROSE 5% WATER 1,000 ML IV SCH (07:00)
[2021-08-27] MEDS: MIDODRINE HCL 5MG TABLET NG SCH ×3 (07:13→22:29)
[2021-08-27] MEDS: FUROSEMIDE 40MG/4ML VIAL IVP SCH (08:34)
[2021-08-27] MEDS: PANTOPRAZOLE SODIUM 40 MG/VIAL IV SCH (08:34)
[2021-08-27 10:25] LABS: HEMATOCRIT. 22.9 % (36.0-48.0); HEMOGLOBIN. 7.2 g/dL (12.0-16.0); MEAN CORPUSCULAR HEMOGLOBIN 29.4 pg (28.0-32.0); MEAN CORPUSCULAR VOLUME 93.2 fL (81.0-99.0); MEAN PLATELET VOLUME 11.4 fl (7.4-10.4); PLATELET 107 x1000/uL (130-400); RED BLOOD CELL COUNT 2.45 mill/uL (4.2-5.4); RED CELL DISTRIBUTION WIDTH 18.1 % (11.6-14.6)
[2021-08-27 11:41] LABS: PLATELET ESTIMATE SLIGHTLY DECREASED
[2021-08-27] MEDS: MORPHINE SULFATE 2 MG/ML CPJ (NOT FOR IM USE) IV PRN ×2 (12:04→16:38)
[2021-08-27 13:12] LABS: BG CARBOXYHEMOGLOBIN 0.7 % (0.5-1.5); BG HCO3 ACT 27.1 mmol/L (22.0-26.0); BG METHEMOGLOBIN 0.3 % (0.0-1.5); BG OXYGEN SATURATION 88.9 % (92.0-98.5); BG PCO2 51.2 mmHg (35.0-45.0); BG PH 7.341 (7.350-7.450); BG PO2 64.7 mmHg (75.0-100.0); BG SAMPLE SITE RIGHT RADIAL; BG TOTAL HEMOGLOBIN 8.1 g/dL (12.0-18.0); BG VENT MODE VENT- PRVC
[2021-08-27] MEDS: FLUCONAZOLE 200 MG/100ML BAG 100 ML IV SCH (21:00)
[2021-08-28] VITALS (82 sets, daily range): BP systolic 81–141; BP diastolic 32–82
[2021-08-28] MEDS: IPRATROPIUM/ALBUTEROL 0.5-3(2.5)MG/3ML NEB HHN SCH ×6 (01:05→20:39)
[2021-08-28] MEDS: PHENYLEPHRINE 100 MG in DEXT 5% WATER 240 ML IV PRN ×3 (04:49→22:07)
[2021-08-28] MEDS: MIDODRINE HCL 5MG TABLET NG SCH ×3 (06:12→21:45)
[2021-08-28] MEDS: DILTIAZEM HCL 60MG TABLET PEG SCH ×3 (06:13→21:45)
[2021-08-28] MEDS: PANTOPRAZOLE SODIUM 40 MG/VIAL IV SCH (09:00)
[2021-08-28] MEDS: FUROSEMIDE 40MG/4ML VIAL IVP SCH (09:00)
[2021-08-28] MEDS ORDERED: DIGOXIN 500MCG/2ML AMP IV NR (11:45)
[2021-08-28 11:55] LABS: BG BASE EXCESS -5.1 mmol/L (-2.0-2.0); BG CARBOXYHEMOGLOBIN 1.7 % (0.5-1.5); BG DEOXYHEMOGLOBIN 32.6 % (0.0-5.0); BG FRACTION INSPIRED OXYGEN 100; BG HCO3 ACT 20.7 mmol/L (22.0-26.0); BG METHEMOGLOBIN 0.3 % (0.0-1.5); BG OXYGEN SATURATION 66.7 % (92.0-98.5); BG OXYHEMOGLOBIN 65.4 % (94.0-97.0); BG PO2 37.1 mmHg (75.0-100.0); BG SAMPLE SITE RIGHT RADIAL; BG TOTAL HEMOGLOBIN 8.5 g/dL (12.0-18.0); BG VENT MODE VENT - PRVC
[2021-08-28 12:44] LABS: HEMATOCRIT. 22.9 % (36.0-48.0); HEMOGLOBIN. 7.3 g/dL (12.0-16.0); MEAN CORPUSCULAR HEMOGLOBIN 30.6 pg (28.0-32.0); MEAN CORPUSCULAR VOLUME 95.2 fL (81.0-99.0); MEAN PLATELET VOLUME 11.8 fl (7.4-10.4); PLATELET 101 x1000/uL (130-400); RED CELL DISTRIBUTION WIDTH 19.3 % (11.6-14.6)
[2021-08-28 12:52] LABS: CHLORIDE 113 mEq/L (98-107)
[2021-08-28 13:30] LABS: PLATELET ESTIMATE SLIGHTLY DECREASED
[2021-08-28] MEDS ORDERED: SODIUM BICARBONATE 8.4% 1 MEQ/ML 50ML SYR IV NR (15:15)
[2021-08-28] MEDS ORDERED: SODIUM BICARBONATE 8.4% 1 MEQ/ML 50ML SYR IV ONE (15:15)
[2021-08-28] MEDS: NOREPINEPHRINE 32 MG in DEXT 5% WATER 218 ML IV PRN (18:01)
[2021-08-28] MEDS: FLUCONAZOLE 200 MG/100ML BAG 100 ML IV SCH (20:26)
[2021-08-29] VITALS (92 sets, daily range): BP systolic 100–149; BP diastolic 42–78
[2021-08-29] MEDS: IPRATROPIUM/ALBUTEROL 0.5-3(2.5)MG/3ML NEB HHN SCH ×6 (00:39→20:10)
[2021-08-29] MEDS: PHENYLEPHRINE 100 MG in DEXT 5% WATER 240 ML IV PRN ×2 (04:20→14:59)
[2021-08-29] MEDS: MIDODRINE HCL 5MG TABLET NG SCH ×4 (06:08→21:21)
[2021-08-29] MEDS: DILTIAZEM HCL 60MG TABLET PEG SCH ×3 (06:09→21:21)
[2021-08-29 06:47] LABS: MEAN CORPUSCULAR HEMOGLOBIN 30.5 pg (28.0-32.0); MEAN PLATELET VOLUME 12.4 fl (7.4-10.4); PLATELET 80 x1000/uL (130-400); RED BLOOD CELL COUNT 2.27 mill/uL (4.2-5.4); RED CELL DISTRIBUTION WIDTH 19.8 % (11.6-14.6)
[2021-08-29 06:50] LABS: HEMOGLOBIN. 6.9 g/dL (12.0-16.0)
[2021-08-29 06:51] LABS: HEMATOCRIT. 21.8 % (36.0-48.0)
[2021-08-29 08:07] LABS: NUCLEATED RED BLOOD CELLS 3 /100 WBC
[2021-08-29 08:08] LABS: PLATELET ESTIMATE DECREASED
[2021-08-29] MEDS: PANTOPRAZOLE SODIUM 40 MG/VIAL IV SCH (09:47)
[2021-08-29] MEDS: FUROSEMIDE 40MG/4ML VIAL IVP SCH (09:48)
[2021-08-29] MEDS: FLUCONAZOLE 200 MG/100ML BAG 100 ML IV SCH (21:21)
[2021-08-30] VITALS (73 sets, daily range): BP systolic 82–139; BP diastolic 28–68
[2021-08-30] MEDS: IPRATROPIUM/ALBUTEROL 0.5-3(2.5)MG/3ML NEB HHN SCH ×6 (00:11→20:21)
[2021-08-30] MEDS: DILTIAZEM HCL 60MG TABLET PEG SCH ×3 (05:39→21:37)
[2021-08-30] MEDS: MIDODRINE HCL 5MG TABLET NG SCH ×3 (05:40→21:36)
[2021-08-30 06:24] LABS: HEMATOCRIT. 23.7 % (36.0-48.0); HEMOGLOBIN. 7.9 g/dL (12.0-16.0); MEAN CORPUSCULAR HEMOGLOBIN 31.8 pg (28.0-32.0); MEAN CORPUSCULAR VOLUME 95.7 fL (81.0-99.0); MEAN PLATELET VOLUME 11.7 fl (7.4-10.4); PLATELET 66 x1000/uL (130-400); RED BLOOD CELL COUNT 2.48 mill/uL (4.2-5.4); RED CELL DISTRIBUTION WIDTH 17.6 % (11.6-14.6)
[2021-08-30 07:03] LABS: NUCLEATED RED BLOOD CELLS 1 /100 WBC; PLATELET ESTIMATE DECREASED
[2021-08-30] MEDS: PANTOPRAZOLE SODIUM 40 MG/VIAL IV SCH (08:55)
[2021-08-30] MEDS: FUROSEMIDE 40MG/4ML VIAL IVP SCH (08:55)
[2021-08-30 09:14] LABS: BG BASE EXCESS 1.1 mmol/L (-2.0-2.0); BG CARBOXYHEMOGLOBIN 1.7 % (0.5-1.5); BG FRACTION INSPIRED OXYGEN 100; BG HCO3 ACT 26.6 mmol/L (22.0-26.0); BG METHEMOGLOBIN 0.5 % (0.0-1.5); BG OXYGEN SATURATION 89.8 % (92.0-98.5); BG OXYHEMOGLOBIN 87.8 % (94.0-97.0); BG PCO2 46.7 mmHg (35.0-45.0); BG PH 7.373 (7.350-7.450); BG PO2 57.5 mmHg (75.0-100.0); BG SAMPLE SITE LEFT RADIAL; BG TOTAL HEMOGLOBIN 8.6 g/dL (12.0-18.0); BG VENT MODE PRVC
[2021-08-30] MEDS: MORPHINE SULFATE 2 MG/ML CPJ (NOT FOR IM USE) IV PRN (10:43)
[2021-08-30] MEDS: FLUCONAZOLE 200 MG/100ML BAG 100 ML IV SCH (20:40)
[2021-08-31] VITALS (97 sets, daily range): BP systolic 49–131; BP diastolic 14–73
[2021-08-31] MEDS: IPRATROPIUM/ALBUTEROL 0.5-3(2.5)MG/3ML NEB HHN SCH ×6 (00:06→20:42)
[2021-08-31] MEDS: DILTIAZEM HCL 60MG TABLET PEG SCH ×3 (06:00→21:57)
[2021-08-31] MEDS: MIDODRINE HCL 5MG TABLET NG SCH ×3 (06:20→21:57)
[2021-08-31] MEDS: PANTOPRAZOLE SODIUM 40 MG/VIAL IV SCH (08:41)
[2021-08-31] MEDS: FUROSEMIDE 40MG/4ML VIAL IVP SCH (08:41)
[2021-08-31] MEDS: MORPHINE SULFATE 2 MG/ML CPJ (NOT FOR IM USE) IV PRN ×2 (08:42→12:46)
[2021-08-31 10:18] LABS: HEMATOCRIT. 24.3 % (36.0-48.0); HEMOGLOBIN. 8.2 g/dL (12.0-16.0); MEAN CORPUSCULAR HEMOGLOBIN 31.6 pg (28.0-32.0); MEAN CORPUSCULAR VOLUME 93.8 fL (81.0-99.0); MEAN PLATELET VOLUME 12.1 fl (7.4-10.4); PLATELET 53 x1000/uL (130-400); RED BLOOD CELL COUNT 2.59 mill/uL (4.2-5.4); RED CELL DISTRIBUTION WIDTH 17.2 % (11.6-14.6)
[2021-08-31 11:00] LABS: PLATELET ESTIMATE DECREASED
[2021-08-31] MEDS: PHENYLEPHRINE 100 MG in DEXT 5% WATER 240 ML IV PRN (12:38)
[2021-08-31] MEDS: FLUCONAZOLE 200 MG/100ML BAG 100 ML IV SCH (20:43)
[2021-09-01] VITALS (100 sets, daily range): BP systolic 74–125; BP diastolic 27–75
[2021-09-01] MEDS: IPRATROPIUM/ALBUTEROL 0.5-3(2.5)MG/3ML NEB HHN SCH ×6 (00:28→20:32)
[2021-09-01] MEDS: PHENYLEPHRINE 100 MG in DEXT 5% WATER 240 ML IV PRN ×4 (00:46→18:16)
[2021-09-01] MEDS: DILTIAZEM HCL 60MG TABLET PEG SCH ×3 (06:00→20:28)
[2021-09-01] MEDS: MIDODRINE HCL 5MG TABLET NG SCH ×3 (06:15→21:27)
[2021-09-01] MEDS: FUROSEMIDE 40MG/4ML VIAL IVP SCH (09:24)
[2021-09-01] MEDS: PANTOPRAZOLE SODIUM 40 MG/VIAL IV SCH (09:24)
[2021-09-01] MEDS ORDERED: MIDODRINE HCL 5MG TABLET PO SCH (09:52)
[2021-09-01 10:38] LABS: HEMATOCRIT. 24.2 % (36.0-48.0); HEMOGLOBIN. 8.2 g/dL (12.0-16.0); MEAN CORPUSCULAR HEMOGLOBIN 31.6 pg (28.0-32.0); MEAN CORPUSCULAR VOLUME 93.6 fL (81.0-99.0); MEAN PLATELET VOLUME 12.4 fl (7.4-10.4); RED BLOOD CELL COUNT 2.58 mill/uL (4.2-5.4); RED CELL DISTRIBUTION WIDTH 17.7 % (11.6-14.6)
[2021-09-01 10:56] LABS: PLATELET 47 x1000/uL (130-400)
[2021-09-01] MEDS: NOREPINEPHRINE 32 MG in DEXT 5% WATER 218 ML IV PRN (11:36)
[2021-09-01 11:38] LABS: PLATELET ESTIMATE MARKEDLY DECREASED
[2021-09-01] MEDS: LACTULOSE 20G/30ML UDC PO PRN (17:58)
[2021-09-01] MEDS ORDERED: MORPHINE SULFATE 2 MG/ML CPJ (NOT FOR IM USE) IV PRN (20:45)
[2021-09-01] MEDS: FLUCONAZOLE 200 MG/100ML BAG 100 ML IV SCH (20:51)
[2021-09-01] MEDS: VASOPRESSIN 20 UNIT in SODIUM CHLORIDE 0.9% 99 ML IV PRN (22:11)
[2021-09-01] MEDS: FENTANYL 2500MCG/250ML PMX 250 ML IV PRN (22:12)
[2021-09-02] VITALS (73 sets, daily range): BP systolic 92–125; BP diastolic 33–69
[2021-09-02] MEDS: IPRATROPIUM/ALBUTEROL 0.5-3(2.5)MG/3ML NEB HHN SCH ×6 (01:23→20:15)
[2021-09-02] MEDS: PHENYLEPHRINE 100 MG in DEXT 5% WATER 240 ML IV PRN ×4 (01:57→18:07)
[2021-09-02] MEDS: VASOPRESSIN 20 UNIT in SODIUM CHLORIDE 0.9% 99 ML IV PRN ×3 (04:41→21:36)
[2021-09-02] MEDS: DILTIAZEM HCL 60MG TABLET PEG SCH ×3 (05:36→21:35)
[2021-09-02] MEDS: MIDODRINE HCL 5MG TABLET NG SCH ×3 (05:45→21:35)
[2021-09-02 06:19] LABS: HEMATOCRIT. 23.5 % (36.0-48.0); MEAN CORPUSCULAR HEMOGLOBIN 32.3 pg (28.0-32.0); MEAN CORPUSCULAR VOLUME 94.4 fL (81.0-99.0); MEAN PLATELET VOLUME 11.5 fl (7.4-10.4); RED BLOOD CELL COUNT 2.49 mill/uL (4.2-5.4); RED CELL DISTRIBUTION WIDTH 18.3 % (11.6-14.6)
[2021-09-02 06:39] LABS: PHOSPHORUS 5.5 mg/dL (2.5-4.9)
[2021-09-02 07:32] LABS: NUCLEATED RED BLOOD CELLS 3 /100 WBC
[2021-09-02 07:33] LABS: PLATELET ESTIMATE MARKEDLY DECREASED
[2021-09-02 07:34] LABS: PLATELET 40 x1000/uL (130-400)
[2021-09-02] MEDS: PANTOPRAZOLE SODIUM 40 MG/VIAL IV SCH (08:46)
[2021-09-02] MEDS: FUROSEMIDE 40MG/4ML VIAL IVP SCH (08:46)
[2021-09-02] MEDS: CITRIC ACID/SODIUM CITRATE SOLN 30ML UDC NG SCH ×2 (09:27→17:05)
[2021-09-02] MEDS ORDERED: NALOXONE HCL 0.4MG/ML VIAL IV PRN (09:45)
[2021-09-02 10:48] LABS: BG BASE EXCESS -3.2 mmol/L (-2.0-2.0); BG CARBOXYHEMOGLOBIN 1.6 % (0.5-1.5); BG DEOXYHEMOGLOBIN 10.6 % (0.0-5.0); BG FRACTION INSPIRED OXYGEN 100; BG HCO3 ACT 23.8 mmol/L (22.0-26.0); BG METHEMOGLOBIN 0.1 % (0.0-1.5); BG OXYGEN SATURATION 89.2 % (92.0-98.5); BG OXYHEMOGLOBIN 87.7 % (94.0-97.0); BG PCO2 52.8 mmHg (35.0-45.0); BG PH 7.271 (7.350-7.450); BG PO2 60.4 mmHg (75.0-100.0); BG SAMPLE SITE RIGHT RADIAL; BG TOTAL HEMOGLOBIN 9.1 g/dL (12.0-18.0); BG VENT MODE PRVC
[2021-09-02 16:51] LABS: INR 1.2; PROTHROMBIN TIME 12.9 sec (9.6-11.0)
[2021-09-02] MEDS: FENTANYL 2500MCG/250ML PMX 250 ML IV PRN (17:06)
[2021-09-02] MEDS: FLUCONAZOLE 200 MG/100ML BAG 100 ML IV SCH (21:35)
[2021-09-03] VITALS (83 sets, daily range): BP systolic 40–133; BP diastolic 24–79
[2021-09-03] MEDS: IPRATROPIUM/ALBUTEROL 0.5-3(2.5)MG/3ML NEB HHN SCH ×6 (00:50→20:50)
[2021-09-03] MEDS: PHENYLEPHRINE 100 MG in DEXT 5% WATER 240 ML IV PRN ×4 (01:43→21:22)
[2021-09-03 04:20] LABS: BASOPHILS % 0.5 % (0.0-2.0); EOSINOPHILS % 1.2 % (0.0-5.0); HEMATOCRIT. 22.4 % (36.0-48.0); HEMOGLOBIN. 7.6 g/dL (12.0-16.0); LYMPHOCYTES % 7.7 % (20.0-50.0); MEAN CORPUSCULAR HEMOGLOBIN 31.9 pg (28.0-32.0); MEAN CORPUSCULAR VOLUME 94.1 fL (81.0-99.0); MEAN PLATELET VOLUME 11.1 fl (7.4-10.4); MONOCYTES % 1.4 % (2.0-8.0); NEUTROPHILS % 89.2 % (40.0-76.0); RED BLOOD CELL COUNT 2.38 mill/uL (4.2-5.4); RED CELL DISTRIBUTION WIDTH 18.9 % (11.6-14.6)
[2021-09-03 04:42] LABS: PLATELET 33 x1000/uL (130-400)
[2021-09-03] MEDS: DILTIAZEM HCL 60MG TABLET PEG SCH ×4 (06:00→21:20)
[2021-09-03] MEDS: MIDODRINE HCL 5MG TABLET NG SCH ×3 (06:46→21:20)
[2021-09-03] MEDS: VASOPRESSIN 20 UNIT in SODIUM CHLORIDE 0.9% 99 ML IV PRN ×2 (07:26→17:06)
[2021-09-03] MEDS: PANTOPRAZOLE SODIUM 40 MG/VIAL IV SCH (09:15)
[2021-09-03] MEDS: CITRIC ACID/SODIUM CITRATE SOLN 30ML UDC NG SCH ×2 (09:15→17:02)
[2021-09-03] MEDS: FUROSEMIDE 40MG/4ML VIAL IVP SCH (09:15)
[2021-09-03] MEDS: FENTANYL 2500MCG/250ML PMX 250 ML IV PRN (11:32)
[2021-09-03] MEDS ORDERED: FUROSEMIDE 100MG/10ML VIAL IVP NR (14:00)
[2021-09-03] MEDS ORDERED: MEROPENEM 1,000 MG in SODIUM CHLORIDE 0.9% 100 ML IV SCH (15:45)
[2021-09-03] MEDS: NOREPINEPHRINE 32 MG in DEXT 5% WATER 218 ML IV PRN (16:35)
[2021-09-03] MEDS: MEROPENEM 500MG in NORMAL SALINE 50ML IV SCH (17:28)
[2021-09-03 17:30] LABS: BG CARBOXYHEMOGLOBIN 1.2 % (0.5-1.5); BG DEOXYHEMOGLOBIN 19.5 % (0.0-5.0); BG FRACTION INSPIRED OXYGEN 100; BG HCO3 ACT 24.7 mmol/L (22.0-26.0); BG METHEMOGLOBIN 0.6 % (0.0-1.5); BG OXYGEN SATURATION 80.1 % (92.0-98.5); BG OXYHEMOGLOBIN 78.7 % (94.0-97.0); BG PCO2 57.7 mmHg (35.0-45.0); BG PH 7.249 (7.350-7.450); BG PO2 49.5 mmHg (75.0-100.0); BG SAMPLE SITE RIGHT RADIAL; BG TOTAL HEMOGLOBIN 10.4 g/dL (12.0-18.0); BG VENT MODE VENT - AC
[2021-09-03] MEDS: FLUCONAZOLE 200 MG/100ML BAG 100 ML IV SCH (21:19)
[2021-09-04] VITALS (89 sets, daily range): BP systolic 70–136; BP diastolic 27–69
[2021-09-04] MEDS: IPRATROPIUM/ALBUTEROL 0.5-3(2.5)MG/3ML NEB HHN SCH ×5 (00:34→20:00)
[2021-09-04] MEDS: VASOPRESSIN 20 UNIT in SODIUM CHLORIDE 0.9% 99 ML IV PRN ×4 (02:44→21:21)
[2021-09-04] MEDS: DILTIAZEM HCL 60MG TABLET PEG SCH ×3 (06:00→21:21)
[2021-09-04] MEDS: MEROPENEM 500MG in NORMAL SALINE 50ML IV SCH ×2 (06:26→17:33)
[2021-09-04] MEDS: MIDODRINE HCL 5MG TABLET NG SCH ×3 (06:26→17:35)
[2021-09-04] MEDS: PHENYLEPHRINE 100 MG in DEXT 5% WATER 240 ML IV PRN ×3 (06:28→18:14)
[2021-09-04] MEDS: NOREPINEPHRINE 32 MG in DEXT 5% WATER 218 ML IV PRN (08:08)
[2021-09-04 08:37] LABS: BASOPHILS % 0.5 % (0.0-2.0); HEMATOCRIT. 23.6 % (36.0-48.0); HEMOGLOBIN. 7.5 g/dL (12.0-16.0); LYMPHOCYTES % 14.2 % (20.0-50.0); MEAN CORPUSCULAR HEMOGLOBIN 31.3 pg (28.0-32.0); MEAN CORPUSCULAR VOLUME 98.2 fL (81.0-99.0); NEUTROPHILS % 79.3 % (40.0-76.0); RED CELL DISTRIBUTION WIDTH 20.3 % (11.6-14.6)
[2021-09-04 09:37] LABS: MEAN PLATELET VOLUME 12.8 fl (7.4-10.4); PLATELET 37 x1000/uL (130-400)
[2021-09-04] MEDS: FUROSEMIDE 40MG/4ML VIAL IVP SCH (10:57)
[2021-09-04] MEDS: PANTOPRAZOLE SODIUM 40 MG/VIAL IV SCH (10:57)
[2021-09-04] MEDS: CITRIC ACID/SODIUM CITRATE SOLN 30ML UDC NG SCH ×2 (10:57→17:32)
[2021-09-04 12:15] LABS: BG BASE EXCESS -6.4 mmol/L (-2.0-2.0); BG CARBOXYHEMOGLOBIN 1.6 % (0.5-1.5); BG DEOXYHEMOGLOBIN 15.8 % (0.0-5.0); BG FRACTION INSPIRED OXYGEN 100; BG HCO3 ACT 19.7 mmol/L (22.0-26.0); BG METHEMOGLOBIN 0.4 % (0.0-1.5); BG OXYGEN SATURATION 83.9 % (92.0-98.5); BG OXYHEMOGLOBIN 82.2 % (94.0-97.0); BG PCO2 42.2 mmHg (35.0-45.0); BG PH 7.288 (7.350-7.450); BG PO2 52.6 mmHg (75.0-100.0); BG SAMPLE SITE RIGHT RADIAL; BG TOTAL HEMOGLOBIN 8.2 g/dL (12.0-18.0); BG VENT MODE PRVC
[2021-09-04] MEDS: FENTANYL 2500MCG/250ML PMX 250 ML IV PRN (21:23)
[2021-09-05] VITALS (81 sets, daily range): BP systolic 66–138; BP diastolic 26–77
[2021-09-05] MEDS: MIDODRINE HCL 5MG TABLET NG SCH ×4 (00:43→18:52)
[2021-09-05] MEDS: PHENYLEPHRINE 100 MG in DEXT 5% WATER 240 ML IV PRN ×3 (00:44→19:53)
[2021-09-05] MEDS: IPRATROPIUM/ALBUTEROL 0.5-3(2.5)MG/3ML NEB HHN SCH ×6 (04:00→20:47)
[2021-09-05] MEDS: NOREPINEPHRINE 32 MG in DEXT 5% WATER 218 ML IV PRN ×3 (04:11→19:52)
[2021-09-05 05:44] LABS: HEMATOCRIT. 22.5 % (36.0-48.0); HEMOGLOBIN. 7.7 g/dL (12.0-16.0); MEAN CORPUSCULAR HEMOGLOBIN 32.2 pg (28.0-32.0); MEAN CORPUSCULAR VOLUME 94.4 fL (81.0-99.0); MEAN PLATELET VOLUME 12.9 fl (7.4-10.4); RED BLOOD CELL COUNT 2.38 mill/uL (4.2-5.4); RED CELL DISTRIBUTION WIDTH 19.3 % (11.6-14.6)
[2021-09-05] MEDS: DILTIAZEM HCL 60MG TABLET PEG SCH ×3 (06:00→22:26)
[2021-09-05] MEDS: MEROPENEM 500MG in NORMAL SALINE 50ML IV SCH ×2 (06:22→18:52)
[2021-09-05] MEDS: VASOPRESSIN 20 UNIT in SODIUM CHLORIDE 0.9% 99 ML IV PRN ×3 (06:23→23:37)
[2021-09-05 06:38] LABS: PLATELET 36 x1000/uL (130-400)
[2021-09-05] MEDS: DEXT 5%/0.45% NACL 1000ML 1,000 ML IV SCH (08:06)
[2021-09-05 08:21] LABS: NUCLEATED RED BLOOD CELLS 5 /100 WBC; PLATELET ESTIMATE MARKEDLY DECREASED
[2021-09-05] MEDS: FUROSEMIDE 40MG/4ML VIAL IVP SCH (10:34)
[2021-09-05] MEDS: CITRIC ACID/SODIUM CITRATE SOLN 30ML UDC NG SCH ×2 (10:34→18:52)
[2021-09-05] MEDS: PANTOPRAZOLE SODIUM 40 MG/VIAL IV SCH (10:34)
[2021-09-05] MEDS ORDERED: DIGOXIN 500MCG/2ML AMP IV NR (12:30)
[2021-09-06] VITALS (97 sets, daily range): BP systolic 83–134; BP diastolic 33–72
[2021-09-06] MEDS: MIDODRINE HCL 5MG TABLET NG SCH ×4 (00:28→17:34)
[2021-09-06] MEDS: IPRATROPIUM/ALBUTEROL 0.5-3(2.5)MG/3ML NEB HHN SCH ×6 (00:35→20:40)
[2021-09-06] MEDS: PHENYLEPHRINE 100 MG in DEXT 5% WATER 240 ML IV PRN ×3 (02:43→17:44)
[2021-09-06] MEDS: MEROPENEM 500MG in NORMAL SALINE 50ML IV SCH ×2 (05:27→17:43)
[2021-09-06] MEDS: DILTIAZEM HCL 60MG TABLET PEG SCH ×3 (05:28→22:32)
[2021-09-06] MEDS: NOREPINEPHRINE 32 MG in DEXT 5% WATER 218 ML IV PRN ×2 (07:36→17:35)
[2021-09-06] MEDS: FUROSEMIDE 40MG/4ML VIAL IVP SCH (08:36)
[2021-09-06] MEDS: CITRIC ACID/SODIUM CITRATE SOLN 30ML UDC NG SCH ×2 (08:36→17:33)
[2021-09-06] MEDS: DEXT 5%/0.45% NACL 1000ML 1,000 ML IV SCH (08:36)
[2021-09-06] MEDS: PANTOPRAZOLE SODIUM 40 MG/VIAL IV SCH (08:36)
[2021-09-06] MEDS: VASOPRESSIN 20 UNIT in SODIUM CHLORIDE 0.9% 99 ML IV PRN ×2 (09:00→17:34)
[2021-09-06] MEDS: FENTANYL 2500MCG/250ML PMX 250 ML IV PRN (09:02)
[2021-09-07] VITALS (100 sets, daily range): BP systolic 64–130; BP diastolic 24–104
[2021-09-07] MEDS: MIDODRINE HCL 5MG TABLET NG SCH ×5 (00:12→23:44)
[2021-09-07] MEDS ORDERED: PHENYLEPHRINE 100 MG in DEXT 5% WATER 240 ML IV PRN (01:30)
[2021-09-07] MEDS ORDERED: FENTANYL 2500MCG/250ML PMX 250 ML IV PRN (01:45)
[2021-09-07] MEDS: PHENYLEPHRINE 100 MG in DEXT 5% WATER 240 ML IV PRN ×4 (02:56→20:33)
[2021-09-07] MEDS: VASOPRESSIN 20 UNIT in SODIUM CHLORIDE 0.9% 99 ML IV PRN ×3 (03:29→20:33)
[2021-09-07] MEDS: DILTIAZEM HCL 60MG TABLET PEG SCH ×3 (06:00→22:00)
[2021-09-07] MEDS: MEROPENEM 500MG in NORMAL SALINE 50ML IV SCH ×2 (06:30→17:37)
[2021-09-07] MEDS: DEXT 5%/0.45% NACL 1000ML 1,000 ML IV SCH (08:28)
[2021-09-07] MEDS: CITRIC ACID/SODIUM CITRATE SOLN 30ML UDC NG SCH ×2 (08:28→17:37)
[2021-09-07] MEDS: LACTULOSE 20G/30ML UDC PO PRN (08:28)
[2021-09-07] MEDS: FUROSEMIDE 40MG/4ML VIAL IVP SCH (08:28)
[2021-09-07 09:50] LABS: BG BASE EXCESS -7.7 mmol/L (-2.0-2.0); BG CARBOXYHEMOGLOBIN 1.3 % (0.5-1.5); BG DEOXYHEMOGLOBIN 11.7 % (0.0-5.0); BG FRACTION INSPIRED OXYGEN 100; BG HCO3 ACT 17.9 mmol/L (22.0-26.0); BG METHEMOGLOBIN 0.4 % (0.0-1.5); BG OXYGEN SATURATION 88.1 % (92.0-98.5); BG OXYHEMOGLOBIN 86.6 % (94.0-97.0); BG PCO2 36.2 mmHg (35.0-45.0); BG PH 7.311 (7.350-7.450); BG PO2 59.3 mmHg (75.0-100.0); BG SAMPLE SITE RIGHT RADIAL; BG TOTAL HEMOGLOBIN 6.5 g/dL (12.0-18.0); BG VENT MODE PRVC
[2021-09-07] MEDS: PANTOPRAZOLE SODIUM 40 MG/VIAL IV SCH (10:44)
[2021-09-07] MEDS: NOREPINEPHRINE 32 MG in DEXT 5% WATER 218 ML IV PRN ×3 (10:47→21:29)
[2021-09-07 11:27] LABS: HEMATOCRIT. 22.2 % (36.0-48.0); HEMOGLOBIN. 7.4 g/dL (12.0-16.0); MEAN CORPUSCULAR HEMOGLOBIN 32.1 pg (28.0-32.0); MEAN CORPUSCULAR VOLUME 95.7 fL (81.0-99.0); RED BLOOD CELL COUNT 2.32 mill/uL (4.2-5.4); RED CELL DISTRIBUTION WIDTH 19.5 % (11.6-14.6)
[2021-09-07] MEDS: FENTANYL 2500MCG/250ML PMX 250 ML IV PRN (11:45)
[2021-09-07 12:26] LABS: NUCLEATED RED BLOOD CELLS 5 /100 WBC; PLATELET ESTIMATE MARKEDLY DECREASED
[2021-09-07 12:30] LABS: MEAN PLATELET VOLUME 13.2 fl (7.4-10.4); PLATELET 25 x1000/uL (130-400)
[2021-09-08] VITALS (57 sets, daily range): BP systolic 79–124; BP diastolic 27–75
[2021-09-08] MEDS: DEXT 5%/0.45% NACL 1000ML 1,000 ML IV SCH (01:45)
[2021-09-08] MEDS: NOREPINEPHRINE 32 MG in DEXT 5% WATER 218 ML IV PRN ×3 (02:02→20:20)
[2021-09-08] MEDS: PHENYLEPHRINE 100 MG in DEXT 5% WATER 240 ML IV PRN ×2 (02:05→21:31)
[2021-09-08] MEDS: FENTANYL 2500MCG/250ML PMX 250 ML IV PRN (03:24)
[2021-09-08] MEDS: DILTIAZEM HCL 60MG TABLET PEG SCH ×3 (05:19→21:30)
[2021-09-08] MEDS: VASOPRESSIN 20 UNIT in SODIUM CHLORIDE 0.9% 99 ML IV PRN ×3 (05:23→23:21)
[2021-09-08] MEDS: MIDODRINE HCL 5MG TABLET NG SCH ×3 (05:23→17:56)
[2021-09-08] MEDS: MEROPENEM 500MG in NORMAL SALINE 50ML IV SCH ×2 (05:23→18:00)
[2021-09-08] MEDS: CITRIC ACID/SODIUM CITRATE SOLN 30ML UDC NG SCH ×2 (09:00→17:50)
[2021-09-08] MEDS: FUROSEMIDE 40MG/4ML VIAL IVP SCH (09:00)
[2021-09-08] MEDS: PANTOPRAZOLE SODIUM 40 MG/VIAL IV SCH (09:00)
[2021-09-08 12:12] LABS: BASOPHILS % 0.5 % (0.0-2.0); EOSINOPHILS % 1.6 % (0.0-5.0); HEMATOCRIT. 21.9 % (36.0-48.0); HEMOGLOBIN. 7.1 g/dL (12.0-16.0); LYMPHOCYTES % 16.2 % (20.0-50.0); MEAN CORPUSCULAR HEMOGLOBIN 31.1 pg (28.0-32.0); MEAN CORPUSCULAR VOLUME 95.3 fL (81.0-99.0); MEAN PLATELET VOLUME 11.4 fl (7.4-10.4); MONOCYTES % 0.8 % (2.0-8.0); NEUTROPHILS % 80.9 % (40.0-76.0); RED CELL DISTRIBUTION WIDTH 19.5 % (11.6-14.6)
[2021-09-08 12:16] LABS: PLATELET 11 x1000/uL (130-400)
[2021-09-08 12:49] LABS: DIGOXIN 0.5 ng/mL (0.9-2.0)
[2021-09-08] MEDS ORDERED: POTASSIUM CHLORIDE 20MEQ/PACKET NG NR (18:13)
[2021-09-08] MEDS ORDERED: DIGOXIN 500MCG/2ML AMP IV NR ×2 (18:15→20:00)
[2021-09-09] VITALS (95 sets, daily range): BP systolic 57–123; BP diastolic 18–70
[2021-09-09] MEDS: MIDODRINE HCL 5MG TABLET NG SCH ×5 (00:59→23:30)
[2021-09-09] MEDS: NOREPINEPHRINE 32 MG in DEXT 5% WATER 218 ML IV PRN ×4 (02:36→20:37)
[2021-09-09] MEDS: PHENYLEPHRINE 100 MG in DEXT 5% WATER 240 ML IV PRN ×4 (03:12→21:01)
[2021-09-09] MEDS: FENTANYL 2500MCG/250ML PMX 250 ML IV PRN (04:20)
[2021-09-09 04:29] LABS: BASOPHILS % 0.7 % (0.0-2.0); EOSINOPHILS % 1.1 % (0.0-5.0); LYMPHOCYTES % 16.4 % (20.0-50.0); MEAN CORPUSCULAR HEMOGLOBIN 31.1 pg (28.0-32.0); MEAN PLATELET VOLUME 11.3 fl (7.4-10.4); MONOCYTES % 1.6 % (2.0-8.0); NEUTROPHILS % 80.2 % (40.0-76.0); RED BLOOD CELL COUNT 2.21 mill/uL (4.2-5.4); RED CELL DISTRIBUTION WIDTH 19.8 % (11.6-14.6)
[2021-09-09 05:03] LABS: HEMATOCRIT. 20.7 % (36.0-48.0); HEMOGLOBIN. 6.9 g/dL (12.0-16.0)
[2021-09-09 05:04] LABS: PLATELET 11 x1000/uL (130-400)
[2021-09-09] MEDS: DILTIAZEM HCL 60MG TABLET PEG SCH ×3 (06:00→21:41)
[2021-09-09] MEDS: MEROPENEM 500MG in NORMAL SALINE 50ML IV SCH ×2 (06:06→17:27)
[2021-09-09] MEDS: DEXT 5%/0.45% NACL 1000ML 1,000 ML IV SCH (07:21)
[2021-09-09] MEDS: KCL 20MEQ/100ML PREMIX 100 ML IV SCH ×2 (07:54→10:13)
[2021-09-09] MEDS: VASOPRESSIN 20 UNIT in SODIUM CHLORIDE 0.9% 99 ML IV PRN ×3 (07:59→23:46)
[2021-09-09] MEDS: FUROSEMIDE 40MG/4ML VIAL IVP SCH (08:04)
[2021-09-09] MEDS: CITRIC ACID/SODIUM CITRATE SOLN 30ML UDC NG SCH ×2 (08:05→17:29)
[2021-09-09] MEDS: PANTOPRAZOLE SODIUM 40 MG/VIAL IV SCH (08:05)
[2021-09-09] MEDS ORDERED: VANCOMYCIN 1,750 MG in DEXT 5% WATER 250 ML IV NR (18:30)
[2021-09-10] VITALS (101 sets, daily range): BP systolic 63–121; BP diastolic 22–91
[2021-09-10] MEDS: NOREPINEPHRINE 32 MG in DEXT 5% WATER 218 ML IV PRN ×4 (02:56→18:42)
[2021-09-10] MEDS: PHENYLEPHRINE 100 MG in DEXT 5% WATER 240 ML IV PRN ×4 (03:25→18:39)
[2021-09-10] MEDS: MEROPENEM 500MG in NORMAL SALINE 50ML IV SCH (05:32)
[2021-09-10] MEDS: DILTIAZEM HCL 60MG TABLET PEG SCH ×3 (05:33→21:30)
[2021-09-10] MEDS: MIDODRINE HCL 5MG TABLET NG SCH ×4 (05:33→23:39)
[2021-09-10] MEDS: DEXT 5%/0.45% NACL 1000ML 1,000 ML IV SCH (07:25)
[2021-09-10] MEDS: VASOPRESSIN 20 UNIT in SODIUM CHLORIDE 0.9% 99 ML IV PRN ×2 (07:27→14:57)
[2021-09-10] MEDS: FENTANYL 2500MCG/250ML PMX 250 ML IV PRN (08:35)
[2021-09-10] MEDS: CITRIC ACID/SODIUM CITRATE SOLN 30ML UDC NG SCH ×2 (08:56→16:35)
[2021-09-10] MEDS: FUROSEMIDE 40MG/4ML VIAL IVP SCH (08:56)
[2021-09-10] MEDS: PANTOPRAZOLE SODIUM 40 MG/VIAL IV SCH (08:56)
[2021-09-10] MEDS ORDERED: DOPAMINE 400MG/250ML PREMIX 250 ML IV PRN (10:00)
[2021-09-10] MEDS ORDERED: FUROSEMIDE 20MG/2ML VIAL IVP NR (14:30)
[2021-09-10] MEDS: MEROPENEM 500 MG in SODIUM CHLORIDE 0.9% 50 ML IV SCH (17:06)
[2021-09-11] VITALS (79 sets, daily range): BP systolic 57–97; BP diastolic 25–72
[2021-09-11] MEDS: VASOPRESSIN 20 UNIT in SODIUM CHLORIDE 0.9% 99 ML IV PRN ×3 (00:13→15:15)
[2021-09-11] MEDS: NOREPINEPHRINE 32 MG in DEXT 5% WATER 218 ML IV PRN ×5 (00:46→22:18)
[2021-09-11] MEDS: PHENYLEPHRINE 100 MG in DEXT 5% WATER 240 ML IV PRN ×4 (00:50→18:37)
[2021-09-11 04:30] LABS: HEMOGLOBIN. 8.2 g/dL (12.0-16.0); MEAN CORPUSCULAR HEMOGLOBIN 29.3 pg (28.0-32.0); MEAN CORPUSCULAR VOLUME 89.1 fL (81.0-99.0); RED BLOOD CELL COUNT 2.81 mill/uL (4.2-5.4); RED CELL DISTRIBUTION WIDTH 21.2 % (11.6-14.6)
[2021-09-11] MEDS: DILTIAZEM HCL 60MG TABLET PEG SCH ×3 (06:00→22:00)
[2021-09-11] MEDS: MEROPENEM 500 MG in SODIUM CHLORIDE 0.9% 50 ML IV SCH ×2 (06:02→17:37)
[2021-09-11] MEDS: MIDODRINE HCL 5MG TABLET NG SCH ×3 (06:07→17:38)
[2021-09-11] MEDS ORDERED: DEXT 5%/0.9% NACL 1,000 ML IV SCH (08:45)
[2021-09-11] MEDS: PANTOPRAZOLE SODIUM 40 MG/VIAL IV SCH (08:45)
[2021-09-11] MEDS: CITRIC ACID/SODIUM CITRATE SOLN 30ML UDC NG SCH ×2 (08:45→17:38)
[2021-09-11 12:19] LABS: MEAN PLATELET VOLUME 7.8 fl (7.4-10.4); PLATELET 74 x1000/uL (130-400)
[2021-09-11 12:22] LABS: NUCLEATED RED BLOOD CELLS 11 /100 WBC; PLATELET ESTIMATE DECREASED
[2021-09-11] MEDS ORDERED: POTASSIUM CHLORIDE INJ 40 MEQ in DEXT 5% WATER 500 ML IV ONE (13:15)
[2021-09-11] MEDS: DOPAMINE HCL 400 MG in DEXT 5% WATER 240 ML IV PRN ×2 (13:47→22:17)
[2021-09-11] MEDS: KCL 20MEQ/100ML PREMIX 100 ML IV SCH ×2 (14:36→17:03)
[2021-09-11] MEDS: CALCIUM CARBONATE 1,250 MG/5 ML UDC PO SCH (17:41)
[2021-09-11] MEDS ORDERED: VANCOMYCIN 1GM PMX (XELLIA) 200 ML IV NR (21:00)
[2021-09-12] VITALS (101 sets, daily range): BP systolic 69–106; BP diastolic 27–63
[2021-09-12] MEDS: MIDODRINE HCL 5MG TABLET NG SCH ×4 (00:31→17:12)
[2021-09-12] MEDS: VASOPRESSIN 20 UNIT in SODIUM CHLORIDE 0.9% 99 ML IV PRN ×3 (00:31→17:11)
[2021-09-12] MEDS: PHENYLEPHRINE 100 MG in DEXT 5% WATER 240 ML IV PRN ×4 (00:32→17:12)
[2021-09-12] MEDS: NOREPINEPHRINE 32 MG in DEXT 5% WATER 218 ML IV PRN ×4 (04:39→20:14)
[2021-09-12] MEDS: DOPAMINE HCL 400 MG in DEXT 5% WATER 240 ML IV PRN ×4 (04:40→20:11)
[2021-09-12 05:40] LABS: BASOPHILS % 0.5 % (0.0-2.0); EOSINOPHILS % 0.2 % (0.0-5.0); HEMATOCRIT. 24.8 % (36.0-48.0); LYMPHOCYTES % 13.4 % (20.0-50.0); MEAN CORPUSCULAR HEMOGLOBIN 29.6 pg (28.0-32.0); MEAN CORPUSCULAR VOLUME 91.3 fL (81.0-99.0); MEAN PLATELET VOLUME 9.6 fl (7.4-10.4); MONOCYTES % 0.4 % (2.0-8.0); NEUTROPHILS % 85.5 % (40.0-76.0); RED BLOOD CELL COUNT 2.71 mill/uL (4.2-5.4); RED CELL DISTRIBUTION WIDTH 21.4 % (11.6-14.6)
[2021-09-12 05:59] LABS: PLATELET 31 x1000/uL (130-400)
[2021-09-12] MEDS: DILTIAZEM HCL 60MG TABLET PEG SCH ×3 (06:00→22:00)
[2021-09-12] MEDS: MEROPENEM 500 MG in SODIUM CHLORIDE 0.9% 50 ML IV SCH ×2 (06:17→17:12)
[2021-09-12] MEDS: CALCIUM CARBONATE 1,250 MG/5 ML UDC PO SCH ×2 (06:20→16:44)
[2021-09-12] MEDS ORDERED: POTASSIUM CHLORIDE INJ 40 MEQ in DEXT 5% WATER 250 ML IV ONE (07:45)
[2021-09-12] MEDS: SODIUM BICARBONATE 100 MEQ in SODIUM CHLORIDE 0.45% 1,000 ML IV SCH (09:04)
[2021-09-12] MEDS: PANTOPRAZOLE SODIUM 40 MG/VIAL IV SCH (09:05)
[2021-09-12] MEDS: KCL 20MEQ/100ML X 2 FOR TOTAL KCL 40MEQ/200ML IV SCH ×2 (09:05→12:06)
[2021-09-12] MEDS: CITRIC ACID/SODIUM CITRATE SOLN 30ML UDC NG SCH ×2 (09:05→16:44)
[2021-09-13] VITALS (100 sets, daily range): BP systolic 45–151; BP diastolic 12–113
[2021-09-13] MEDS: MIDODRINE HCL 5MG TABLET NG SCH ×4 (00:03→17:04)
[2021-09-13] MEDS: PHENYLEPHRINE 100 MG in DEXT 5% WATER 240 ML IV PRN ×4 (00:30→20:25)
[2021-09-13] MEDS: VASOPRESSIN 20 UNIT in SODIUM CHLORIDE 0.9% 99 ML IV PRN ×3 (02:07→20:20)
[2021-09-13] MEDS: NOREPINEPHRINE 32 MG in DEXT 5% WATER 218 ML IV PRN ×4 (03:28→22:01)
[2021-09-13] MEDS: DOPAMINE HCL 400 MG in DEXT 5% WATER 240 ML IV PRN ×5 (03:32→21:58)
[2021-09-13 04:53] LABS: HEMATOCRIT. 22.7 % (36.0-48.0); HEMOGLOBIN. 7.4 g/dL (12.0-16.0); MEAN CORPUSCULAR HEMOGLOBIN 29.4 pg (28.0-32.0); MEAN CORPUSCULAR VOLUME 89.6 fL (81.0-99.0); RED BLOOD CELL COUNT 2.53 mill/uL (4.2-5.4); RED CELL DISTRIBUTION WIDTH 21.2 % (11.6-14.6)
[2021-09-13] MEDS: MEROPENEM 500 MG in SODIUM CHLORIDE 0.9% 50 ML IV SCH (05:00)
[2021-09-13] MEDS: DILTIAZEM HCL 60MG TABLET PEG SCH ×3 (05:01→22:00)
[2021-09-13 06:29] LABS: PLATELET 23 x1000/uL (130-400)
[2021-09-13 06:33] LABS: NUCLEATED RED BLOOD CELLS 2 /100 WBC; PLATELET ESTIMATE MARKEDLY DECREASED
[2021-09-13] MEDS: SODIUM BICARBONATE 100 MEQ in SODIUM CHLORIDE 0.45% 1,000 ML IV SCH ×2 (06:58→22:03)
[2021-09-13] MEDS: CALCIUM CARBONATE 1,250 MG/5 ML UDC PO SCH ×2 (06:58→17:05)
[2021-09-13] MEDS: CITRIC ACID/SODIUM CITRATE SOLN 30ML UDC NG SCH ×2 (08:04→17:04)
[2021-09-13] MEDS: PANTOPRAZOLE SODIUM 40 MG/VIAL IV SCH (08:04)
[2021-09-13] MEDS ORDERED: VANCOMYCIN 1GM PMX (XELLIA) 200 ML IV SCH (11:00)
[2021-09-13] MEDS: MEROPENEM 1000MG in NORMAL SALINE 100ML IV SCH (16:10)
[2021-09-14] VITALS (88 sets, daily range): BP systolic 47–145; BP diastolic 17–108
[2021-09-14] MEDS: DOPAMINE HCL 400 MG in DEXT 5% WATER 240 ML IV PRN ×6 (01:44→21:06)
[2021-09-14] MEDS: PHENYLEPHRINE 100 MG in DEXT 5% WATER 240 ML IV PRN ×4 (02:55→21:27)
[2021-09-14] MEDS: NOREPINEPHRINE 32 MG in DEXT 5% WATER 218 ML IV PRN ×4 (03:20→21:04)
[2021-09-14] MEDS: VASOPRESSIN 20 UNIT in SODIUM CHLORIDE 0.9% 99 ML IV PRN ×3 (05:20→23:17)
[2021-09-14] MEDS: DILTIAZEM HCL 60MG TABLET PEG SCH ×3 (06:00→22:00)
[2021-09-14] MEDS: MEROPENEM 1000MG in NORMAL SALINE 100ML IV SCH ×2 (06:15→18:04)
[2021-09-14] MEDS: MIDODRINE HCL 5MG TABLET NG SCH ×4 (06:19→17:06)
[2021-09-14] MEDS: CALCIUM CARBONATE 1,250 MG/5 ML UDC PO SCH ×2 (09:00→17:00)
[2021-09-14] MEDS: PANTOPRAZOLE SODIUM 40 MG/VIAL IV SCH (09:27)
[2021-09-14] MEDS: CITRIC ACID/SODIUM CITRATE SOLN 30ML UDC NG SCH ×2 (09:28→17:00)
[2021-09-14] MEDS: SODIUM BICARBONATE 100 MEQ in SODIUM CHLORIDE 0.45% 1,000 ML IV SCH (20:30)
[2021-09-14] MEDS ORDERED: VANCOMYCIN 1GM PMX (XELLIA) 200 ML IV NR (22:00)
[2021-09-15] VITALS (9 sets, daily range): BP systolic 51–101; BP diastolic 21–69
[2021-09-15 00:03] LABS: MEAN CORPUSCULAR HEMOGLOBIN 29.8 pg (28.0-32.0); MEAN CORPUSCULAR VOLUME 98.7 fL (81.0-99.0); RED BLOOD CELL COUNT 1.67 mill/uL (4.2-5.4)
[2021-09-15 00:08] LABS: CHLORIDE 76 mEq/L (98-107)
[2021-09-15] MEDS: MIDODRINE HCL 5MG TABLET NG SCH (00:14)
[2021-09-15 00:18] LABS: HEMATOCRIT. 16.4 % (36.0-48.0)
[2021-09-15 00:19] LABS: PLATELET 5 x1000/uL (130-400)
[2021-09-15] MEDS: NOREPINEPHRINE 32 MG in DEXT 5% WATER 218 ML IV PRN (02:36)
[2021-09-15] MEDS: PHENYLEPHRINE 100 MG in DEXT 5% WATER 240 ML IV PRN (03:11)
[2021-09-15 04:33] LABS: MEAN CORPUSCULAR HEMOGLOBIN 30.6 pg (28.0-32.0); MEAN CORPUSCULAR VOLUME 104.7 fL (81.0-99.0); MEAN PLATELET VOLUME 9.2 fl (7.4-10.4); RED BLOOD CELL COUNT 1.59 mill/uL (4.2-5.4); RED CELL DISTRIBUTION WIDTH 22.2 % (11.6-14.6)
[2021-09-15 04:41] LABS: CHLORIDE 75 mEq/L (98-107)
[2021-09-15] MEDS: DOPAMINE HCL 400 MG in DEXT 5% WATER 240 ML IV PRN (04:43)
[2021-09-15 05:11] LABS: HEMATOCRIT. 16.7 % (36.0-48.0); HEMOGLOBIN. 4.9 g/dL (12.0-16.0)
[2021-09-15 05:12] LABS: PLATELET 7 x1000/uL (130-400)
[2021-09-15 10:52] LABS: NUCLEATED RED BLOOD CELLS 5 /100 WBC; PLATELET ESTIMATE MARKEDLY DECREASED
[2021-09-15 12:18] LABS: NUCLEATED RED BLOOD CELLS 5 /100 WBC
[2021-09-15 12:19] LABS: PLATELET ESTIMATE MARKEDLY DECREASED
== END 2021-09-15 05:00 | DRG 870 ==
LOC: ER 15:11 → MICUNO 16:01 → ENRESERV 22:13
PROVIDERS: ADMIT Internal Medicine; ATTEND Internal Medicine
PROC: 5A1955Z Respiratory Ventilation, Greater than 96 Consecutive Hours (ICD-10-PCS; principal; 2021-08-09)
PROC: B54BZZA Ultrasonography of Right Lower Extremity Veins, Guidance (ICD-10-PCS; 2021-08-09)
PROC: 06HY33Z Insertion of Infusion Device into Lower Vein, Percutaneous Approach (ICD-10-PCS; 2021-08-09)
PROC: 5A12012 Performance of Cardiac Output, Single, Manual (ICD-10-PCS; 2021-08-09)
PROC: 30233N1 Transfusion of Nonautologous Red Blood Cells into Peripheral Vein, Percutaneous Approach (ICD-10-PCS; 2021-08-14)
PROC: 02HV33Z Insertion of Infusion Device into Superior Vena Cava, Percutaneous Approach (ICD-10-PCS; 2021-08-15)
PROC: B548ZZA Ultrasonography of Superior Vena Cava, Guidance (ICD-10-PCS; 2021-08-15)
PROC: 30233R1 Transfusion of Nonautologous Platelets into Peripheral Vein, Percutaneous Approach (ICD-10-PCS; 2021-09-10)
DX: A41.50 Gram-negative sepsis, unspecified (principal); L89.153 Pressure ulcer of sacral region, stage 3; E43 Unspecified severe protein-calorie malnutrition; J80 Acute respiratory distress syndrome; R65.21 Severe sepsis with septic shock; N17.0 Acute kidney failure with tubular necrosis; J15.6 Pneumonia due to other Gram-negative bacteria; G93.41 Metabolic encephalopathy; I50.21 Acute systolic (congestive) heart failure; I21.9 Acute myocardial infarction, unspecified; I48.92 Unspecified atrial flutter; D68.9 Coagulation defect, unspecified; B37.49 Other urogenital candidiasis; E87.0 Hyperosmolality and hypernatremia; J95.01 Hemorrhage from tracheostomy stoma; Z99.11 Dependence on respirator [ventilator] status; I42.9 Cardiomyopathy, unspecified; I13.0 Hypertensive heart and chronic kidney disease with heart failure and stage 1 through stage 4 chronic kidney disease, or unspecified chronic kidney disease; Z66 Do not resuscitate; D64.9 Anemia, unspecified; E78.5 Hyperlipidemia, unspecified; F02.80 Dementia in other diseases classified elsewhere, unspecified severity, without behavioral disturbance, psychotic disturbance, mood disturbance, and anxiety; D69.6 Thrombocytopenia, unspecified; I46.9 Cardiac arrest, cause unspecified; E83.51 Hypocalcemia; N18.9 Chronic kidney disease, unspecified; G93.89 Other specified disorders of brain; R59.0 Localized enlarged lymph nodes; I48.0 Paroxysmal atrial fibrillation; I27.20 Pulmonary hypertension, unspecified; I07.1 Rheumatic tricuspid insufficiency; Z20.822 Contact with and (suspected) exposure to COVID-19; I49.3 Ventricular premature depolarization; I25.2 Old myocardial infarction; Z79.01 Long term (current) use of anticoagulants; Z79.899 Other long term (current) drug therapy; Z86.73 Personal history of transient ischemic attack (TIA), and cerebral infarction without residual deficits; Z68.34 Body mass index [BMI] 34.0-34.9, adult; B37.9 Candidiasis, unspecified
CPT/HCPCS: 36415; 36600; 71045; 71250; 76604; 76770; 76937; 78580; 80048; 80053; 80061; 80162; 80202; 81003; 82040; 82150; 82330; 82375; 82533; 82550; 82553; 82570; 82575; 82805; 82962; 83036; 83605; 83615; 83735; 83880; 83930; 84100; 84145; 84156; 84443; 84484; 84703; 85014; 85018; 85025; 85362; 85384; 86038; 86160; 86592; 86803; 86850; 86900; 86920; 87070; 87077; 87106; 87186; 87340; 87426; 92950; 93005; 93306; 93880; 93970; 94002; 94003; 94640; 99291; A6261; C1725; C9113; J0360; J0456; J1160; J1265; J1450; J1644; J1650; J1815; J1940; J2060; J2185; J2250; J2270; J2370; J2543; J2765; J2920; J2930; J3010; J3370; J3475; J3480; J3490; J7030; J7050; J7060; J7070; P9016; P9034; P9047; A4315